=== PATIENT | female | born 1960 | race Caucasian/White ===

== ENCOUNTER → 2017-02-23 | Outpatient (CLI) | payer MEDICARE ==
--- NOTE | 2017-02-23 12:49 | RADIOLOGY REPORT (SQ) ---
EXAM DESCRIPTION: ANKLE LEFT COMPLETE COMPLETED DATE/TIME: 02/23/2017 12:28 pm REASON FOR STUDY: S99.911A INJURY OF RIGHT ANKLE, INITIAL ENCOUNTER DEGENERATIVE LUMBAR SPINA S99.91 1A UNSPECIFIED INJURY OF RIGHT ANKLE, INITIAL ENCOUNTE M48.061 SPINAL STENOSIS, LUMBAR REGION WITHO UT NEUROGENIC CL COMPARISON: None. NUMBER OF VIEWS: Three views. TECHNIQUE: AP, lateral, and oblique radiographic images acquired of the left ankle. LIMITATIONS: None. FINDINGS: MINERALIZATION: Normal. BONES: Small cortical avulsion fragments along the inferior tip of the medial malleolus, age indeterm inate. Remainder of the visualized bony structures are intact JOINTS: No effusions. No malalignment at the ankle mortise SOFT TISSUES: No soft tissue swelling. No foreign body. OTHER: No other significant finding. IMPRESSION: Tiny avulsion fragment off the tip of the medial malleolus, age indeterminate. No disruption of the ankle mortise. No ankle joint effusion TECHNICAL DOCUMENTATION: JOB ID: [id number] [employer]- All Rights Reserved
--- NOTE | 2017-02-23 12:55 | RADIOLOGY REPORT (SQ) ---
EXAM DESCRIPTION: L SPINE WHOLE COMPLETED DATE/TIME: 02/23/2017 12:28 pm REASON FOR STUDY: S99.911A INJURY OF RIGHT ANKLE, INITIAL ENCOUNTER DEGENERATIVE LUMBAR SPINA S99.91 1A UNSPECIFIED INJURY OF RIGHT ANKLE, INITIAL ENCOUNTE M48.061 SPINAL STENOSIS, LUMBAR REGION WITHO UT NEUROGENIC CL COMPARISON: 12/27/[address] abdomen pelvis 08/25/2015 NUMBER OF VIEWS: Five views including obliques. TECHNIQUE: AP, lateral, oblique, and sacral radiographic images acquired of the lumbar spine. LIMITATIONS: None. FINDINGS: MINERALIZATION: Osteopenic SEGMENTATION: There are 6 lumbar type vertebral bodies. The most superior vertebral body has short r ibs/ long transverse processes and will be labeled T12. ALIGNMENT: Normal. VERTEBRAE: Maintained height. No fracture or worrisome bone lesion. DISCS: Disc space loss of height at T11-12 and T12-L1. POSTERIOR ELEMENTS: Pedicles and facets are intact. No pars defect or posterior arch defects. Lower lumbar facet arthropathy at L3-4, L4-5, and L5-S1 HARDWARE: None in the spine. PARASPINAL SOFT TISSUES: Normal. PELVIS: Mild bilateral SI joint sclerosis OTHER: Large retrocardiac hiatal hernia containing the stomach fundus IMPRESSION: Mild degenerative facet arthropathy lower lumbar spine TECHNICAL DOCUMENTATION: JOB ID: [id number] [employer]- All Rights Reserved
== END ==
LOC: RAD 11:46
PROVIDERS: ATTEND Family Medicine
DX: S99.911A Unspecified injury of right ankle, initial encounter (principal); M48.061 Spinal stenosis, lumbar region without neurogenic claudication; X58.XXXA Exposure to other specified factors, initial encounter
CPT/HCPCS: 72110

== ENCOUNTER 2017-03-01 08:15 | Emergency (ER) | payer MEDICARE ==
[2017-03-01 08:20] VITALS: BP 134/86
--- NOTE | 2017-03-01 09:09 | ER Document Report ---
HPI - HPI Patient complains to provider of: left ankle injury Pain Level: 5 Context: Patient is a 56-year-old female presents emergency department complaining of left ankle pain. Patient states she fell approximately 2 weeks ago and was seen [address] Calle's office and sent for imaging which she had done on the . She was called and told that she did have a break in her ankle that should be set up with orthopedics. Patient presents today stating it is difficult and painful for her to ambulate around her home. Otherwise past medical history significant for hypertension, hyperlipidemia, anxiety, history of colitis, MS and cervical spinal stenosis. Denies any past surgical history on this extremity. Denies any tobacco, alcohol or drug use. Primary care is Dr. Calle - REPRODUCTIVE Reproductive: DENIES: : Past Medical History - Social History Smoking Status: Never Smoker Family History: Reviewed & Not Pertinent - Past Medical History Cardiac Medical History: Reports: Hx Hypercholesterolemia, Hx Hypertension Past Surgical History: Reports: Hx Hysterectomy Vertical Provider Document - CONSTITUTIONAL Agree With Documented VS: Yes Notes: PHYSICAL EXAM GENERAL: Alert, interacts well. EXTREMITIES: Moves all 4 extremities spontaneously. Tenderness over the medial aspect of the left ankle without any evidence of ecchymosis or edema. Full range of motion. Moves all digits distal to the ankle without any difficulty with normal capillary refill. Knee with full range of motion and nontender. No edema, radial and dorsalis pedis pulses 2/4 bilaterally. No cyanosis. NEUROLOGICAL: Alert and oriented x4. Normal speech. PSYCH: Normal affect, normal mood. SKIN: Warm, dry, normal turgor. No rashes or lesions noted. - INFECTION CONTROL TRAVEL OUTSIDE OF THE [place] IN LAST 30 DAYS: No - RESPIRATORY O2 Sat by Pulse Oximetry: 99 Course - Re-evaluation Re-evalutation: 03/01/17 09:08 Patient is a 56-year-old female who is hemodynamically stable, no acute distress. Presentation is consistent with imaging evidence of a medial malleolus fracture of the left ankle. Patient will be placed in a splint and educated on the use of crutches. No evidence of joint effusion at this time. Low clinical suspicion for septic joint. Regarding pain medication. Patient received 30 Percocet from her PCP Dr. Calle on February 19 which he was able to see when reviewing the [place] controlled substance reporting system. She will be discharged home with instructions to follow-up with Dr. Calle as scheduled as well as orthopedics. - Vital Signs Vital signs: Temp Pulse Resp BP Pulse Ox 98.4 F 86 20 134/86 H 99 03/01/17 08:19 03/01/17 08:19 03/01/17 08:19 03/01/17 08:19 03/01/17 08:19 - Diagnostic Test Radiology reviewed: Image reviewed - Image done on February 23 shows evidence of a medial malleolus fracture., Reports reviewed Procedures - Immobilization Left Ankle Pre-Proc Neuro Vasc Exam: Normal Immobilizer type: Short Leg Posterior Performed by: PCT Post-Proc Neuro Vasc Exam: Normal, Unchanged from pre-exam Alignment checked and good: Yes Discharge - Discharge Clinical Impression: Fractured medial malleolus Qualifiers: Encounter type: initial encounter Fracture type: closed Fracture alignment: nondisplaced Laterality: left Qualified Code(s): S82.55XA - Nondisplaced fracture of medial malleolus of left tibia, initial encounter for closed fracture Condition: Good Disposition: HOME, SELF-CARE Instructions: Use of Crutches ([facility]), Ice & Elevation ([facility]), Avulsion Fracture of the Ankle ([facility]) Referrals: EBONY CALLE DO [NO LOCAL MD] - Follow up as needed YARED KHALIL DO [ACTIVE STAFF] - Follow up in 3-5 days
== END 2017-03-01 10:30 | disposition home or self-care (01) ==
LOC: ER 08:15
PROC: 2W3RX1Z Immobilization of Left Lower Leg using Splint (ICD-10-PCS; principal; 2017-03-01)
DX: S82.55XA Nondisplaced fracture of medial malleolus of left tibia, initial encounter for closed fracture (principal); M25.572 Pain in left ankle and joints of left foot; I10 Essential (primary) hypertension; E78.5 Hyperlipidemia, unspecified; F41.9 Anxiety disorder, unspecified; W19.XXXA Unspecified fall, initial encounter
CPT/HCPCS: 99283

== ENCOUNTER 2017-10-04 22:46 | Emergency (ER) | payer MEDICARE ==
[2017-10-04] MEDS ORDERED: ASPIRIN 81 MG TABLET, CHEWABLE PO ONE (23:19)
[2017-10-04] MEDS ORDERED: ONDANSETRON 4 MG TAB.RAPDIS PO ONE (23:42)
--- NOTE | 2017-10-04 23:45 | ER Document Report ---
ED Medical Screen (RME) - General Chief Complaint: chest pain, shaky and dizzy Stated Complaint: CHEST PAIN Time Seen by Provider: 10/04/17 23:42 Mode of Arrival: Wheelchair Information source: Patient Notes: Patient is a 57-year-old female who presents with chief complaint of chest pain. Patient reports that the pain started or Wednesday, patient reports that she has been under a lot of stress lately, and that she ran out of her Xanax. Patient reports that she has chest pain in her left chest that radiates to her left jaw, arm and shoulder. Patient reports that the pain is worse with palpation. Patient reports past medical history of atrial septal defect and hypertension. Exam: Tenderness to palpation to left chest wall. Heart sounds S1-S2 present with no ectopy noted. I have greeted and performed a rapid initial assessment of this patient. A comprehensive ED assessment and evaluation of the patient, analysis of test results and completion of the medical decision making process will be conducted by additional ED providers. Dictation of this chart was performed using voice recognition software; therefore, there may be some unintended grammatical errors. TRAVEL OUTSIDE OF THE [place] IN LAST 30 DAYS: No - Related Data Allergies/Adverse Reactions: clarithromycin [From Biaxin] Allergy (Verified 03/01/17 08:18) ibuprofen [From Motrin] Allergy (Verified 03/01/17 08:18) ketorolac tromethamine [From Toradol] Allergy (Verified 03/01/17 08:18) nitroglycerin [Nitroglycerin] Allergy (Verified 03/01/17 08:18) NSAIDS (Non-Steroidal Anti-Inflamma [Nsaids] Allergy (Verified 03/01/17 08:18) Penicillins Allergy (Verified 03/01/17 08:18) Sulfa (Sulfonamide Antibiotics) Allergy (Verified 03/01/17 08:18) tramadol [Tramadol] Allergy (Verified 03/01/17 08:18) muscle relaxers Allergy (Uncoded 08/25/15 13:06) Past Medical History - Past Medical History Cardiac Medical History: Reports: Hx Hypercholesterolemia, Hx Hypertension Renal/ Medical History: Denies: Hx Peritoneal Dialysis Past Surgical History: Reports: Hx Hysterectomy Doctor's Discharge - Discharge Referrals: EBONY GONZALEZ DO [Primary Care Provider] - Follow up as needed
[2017-10-05 00:08] LABS: ABSOLUTE BASOPHILS # (AUTO) 0.1 10^3/uL (0.0-0.2); ABSOLUTE LYMPHOCYTES (AUTO) 2.6 10^3/uL (0.5-4.7); ABSOLUTE MONOCYTES (AUTO) 0.6 10^3/uL (0.1-1.4); ABSOLUTE NEUT (AUTO) 7.5 10^3/uL (1.7-8.2); BASOPHILS % (AUTO) 0.5 % (0-2); EOSINOPHILS % (AUTO) 0.1 % (0-6); HEMATOCRIT 35.2 % (36.0-47.0); HEMOGLOBIN 12.8 g/dL (12.0-15.5); LYMPHOCYTES % (AUTO) 23.9 % (13-45); MEAN CORPUSCULAR HEMOGLOBIN 31.1 pg (27.0-33.4); MEAN CORPUSCULAR HGB CONC 36.3 g/dL (32.0-36.0); MEAN CORPUSCULAR VOLUME 86 fl (80-97); MONOCYTES % (AUTO) 5.7 % (3-13); PLATELET COUNT 456 10^3/uL (150-450); RED BLOOD COUNT 4.11 10^6/uL (3.72-5.28); RED CELL DISTRIBUTION WIDTH 12.7 % (11.5-14.0); SEGMENTED NEUTROPHILS % (AUTO) 69.8 % (42-78); TOTAL CELLS COUNTED % (AUTO) 100 %; WHITE BLOOD COUNT 10.7 10^3/uL (4.0-10.5)
[2017-10-05 00:23] LABS: ALANINE AMINOTRANSFERASE 24 U/L (9-52); ALBUMIN 5.2 g/dL (3.5-5.0); ALKALINE PHOSPHATASE 52 U/L (38-126); ANION GAP 16 (5-19); ASPARTATE AMINO TRANSFERASE 15 U/L (14-36); BILIRUBIN,DIRECT 0.2 mg/dL (0.0-0.4); BILIRUBIN,TOTAL 0.8 mg/dL (0.2-1.3); BLOOD UREA NITROGEN 12 mg/dL (7-20); CARBON DIOXIDE 28 mmol/L (22-30); CHLORIDE 87 mmol/L (98-107); CREATINE KINASE 58 U/L (30-135); GLUCOSE 127 mg/dL (75-110); POTASSIUM 3.1 mmol/L (3.6-5.0); SODIUM 131.2 mmol/L (137-145); TOTAL PROTEIN 8.4 g/dL (6.3-8.2)
[2017-10-05 00:33] LABS: CREATINE KINASE MB 0.79 ng/mL (<4.55)
[2017-10-05 00:36] LABS: TROPONIN I < 0.012 ng/mL
[2017-10-05] MEDS ORDERED: ALPRAZOLAM 0.5 MG TABLET PO ONE (01:52)
--- NOTE | 2017-10-05 01:54 | ER Document Report ---
ED General - General Chief Complaint: chest pain, shaky and dizzy Stated Complaint: CHEST PAIN Time Seen by Provider: 10/04/17 23:42 Mode of Arrival: Wheelchair Notes: Patient is a 57-year-old female with a past medical history of chronic anxiety and takes daily Xanax, hypertension, who presents with 3 days of left-sided chest discomfort as well as left leg tingling and drinking. She reports that she has been under a lot of stress lately, and attributes her symptoms to being out of her Xanax. She states that she is worried she is going to withdrawal and have a myocardial infarction. She describes the pain in her left chest as being a constant, stabbing, aching pain worsened by movement or touching the area. She has not training to improve the pain. She denies any history of similar symptoms in the past. She has no history of cardiac disease. No history of DVT or pulmonary embolus. She denies any associated shortness of breath. She has not contacted her general doctor regarding today's concerns. TRAVEL OUTSIDE OF THE [place] IN LAST 30 DAYS: No - Related Data Allergies/Adverse Reactions: clarithromycin [From Biaxin] Allergy (Verified 03/01/17 08:18) ibuprofen [From Motrin] Allergy (Verified 03/01/17 08:18) ketorolac tromethamine [From Toradol] Allergy (Verified 03/01/17 08:18) nitroglycerin [Nitroglycerin] Allergy (Verified 03/01/17 08:18) NSAIDS (Non-Steroidal Anti-Inflamma [Nsaids] Allergy (Verified 03/01/17 08:18) Penicillins Allergy (Verified 03/01/17 08:18) Sulfa (Sulfonamide Antibiotics) Allergy (Verified 03/01/17 08:18) tramadol [Tramadol] Allergy (Verified 03/01/17 08:18) muscle relaxers Allergy (Uncoded 08/25/15 13:06) Past Medical History - General Information source: Patient - Social History Smoking Status: Never Smoker Chew tobacco use (# tins/day): No Frequency of alcohol use: None Drug Abuse: None Lives with: Spouse/Significant other Family History: Reviewed & Not Pertinent Patient has suicidal ideation: No Patient has homicidal ideation: No - Past Medical History Cardiac Medical History: Reports: Hx Hypercholesterolemia, Hx Hypertension Renal/ Medical History: Denies: Hx Peritoneal Dialysis Past Surgical History: Reports: Hx Hysterectomy Review of Systems - Review of Systems Notes: Constitutional: Negative for fever. HENT: Negative for sore throat. Eyes: Negative for visual changes. Cardiovascular: Positive for chest pain. Respiratory: Negative for shortness of breath. Gastrointestinal: Negative for abdominal pain, vomiting or diarrhea. Genitourinary: Negative for dysuria. Musculoskeletal: Negative for back pain. Skin: Negative for rash. Neurological: Negative for headaches, weakness or numbness. 10 point ROS negative except as marked above and in HPI. Physical Exam - Vital signs Vitals: Pulse Resp BP Pulse Ox 78 18 132/80 H 98 10/05/17 02:00 10/05/17 02:00 10/05/17 02:00 10/05/17 02:00 Interpretation: Normal Notes: PHYSICAL EXAMINATION: GENERAL: Well-appearing, well-nourished and in no acute distress. HEAD: Atraumatic, normocephalic. EYES: Pupils equal round and reactive to light, extraocular movements intact, sclera anicteric, conjunctiva are normal. ENT: nares patent, oropharynx clear without exudates. Moist mucous membranes. NECK: Normal range of motion, supple without lymphadenopathy LUNGS: Breath sounds clear to auscultation bilaterally and equal. No wheezes rales or rhonchi. HEART: Regular rate and rhythm without murmurs ABDOMEN: Soft, nontender, normoactive bowel sounds. No guarding, no rebound. No masses appreciated. EXTREMITIES: Normal range of motion, no pitting or edema. No cyanosis. NEUROLOGICAL: No focal neurological deficits. Moves all extremities spontaneously and on command. PSYCH: Anxious, somewhat tremulous SKIN: Warm, Dry, normal turgor, no rashes or lesions noted. Course - Re-evaluation Re-evalutation: 10/05/17 01:52 Presentation of chest pain in an otherwise well appearing patient. Low clinical suspicion for ACS given clinical history, exam, EKG without ST elevations or depressions, and negative initial troponin. HEART score less than or equal to 3. PE also seems unlikely given clinical history, absence of tachycardia or dyspnea. Wells score is 0. CXR without evidence of pneumothorax or pneumonia. No widened mediastinum. Aortic dissection also seems unlikely given history, symmetric pulses, CXR, and vitals. Patient has been having these symptoms for the past 3 days and I do not believe serial troponins are indicated. Patient appears to be having Xanax withdrawal she has not filled her prescription for her primary care doctor. She is tremulous, has multiple somatic complaints and she herself attributes most of her symptoms to stress and benzodiazepine withdrawal. She is given a single dose here in the emergency department and will fill the prescription for her primary care doctor in the morning. At this time will discharge with return precautions and follow-up recommendations. Verbal discharge instructions given a the bedside and opportunity for questions given. Medication warnings reviewed. Patient is in agreement with this plan and has verbalized understanding of return precautions and the need for primary care follow-up in the next 24-72 hours. - Vital Signs Vital signs: Temp Pulse Resp BP Pulse Ox 78 18 132/80 H 98 10/05/17 02:00 10/05/17 02:00 10/05/17 02:00 10/05/17 02:00 - Laboratory Result Diagrams: 10/04/17 23:57 10/04/17 23:57 Laboratory results interpreted by me: 10/04/17 10/04/17 23:57 23:57 WBC 10.7 H Hct 35.2 L MCHC 36.3 H Plt Count 456 H Sodium 131.2 L Potassium 3.1 L Chloride 87 L Glucose 127 H Total Protein 8.4 H Albumin 5.2 H - Diagnostic Test Radiology reviewed: Image reviewed, Reports reviewed Radiology results interpreted by me: 10/05/17 01:53 Chest x-ray: No acute infiltrate or pneumothorax Discharge - Discharge Clinical Impression: Chest discomfort, Chronic anxiety Benzodiazepine withdrawal Qualifiers: Complication of substance-induced condition: uncomplicated Qualified Code(s): F13.230 - Sedative, hypnotic or anxiolytic dependence with withdrawal, uncomplicated Condition: Good Disposition: HOME, SELF-CARE Additional Instructions: You were seen today for chest pain. The exact cause of your pain is unclear but does appear to be related to your recent stress and Xanax withdrawal. However, based on your cardiac enzyme testing, chest x-ray, and EKG it does not appear that it is from an immediately life-threatening cause at this time. Although your testing here is normal is critical that you follow-up with your primary care physician for continued evaluation of this chest pain and possible stress testing. I recommended you see your physician within the next 24-48 hours to be evaluated for consideration of a stress test. Please return to emergency department immediately if you have worsening of your chest pain, shortness of breath, vomiting, become unable to exert yourself due to pain or difficulty breathing, you pass out, or have any pain that radiates into your arms, jaw, or back. Please also return if you have any additional symptoms that are concerning to you. Referrals: EBONY GONZALEZ, [Primary Care Provider] - Follow up as needed
--- NOTE | 2017-10-05 01:59 | RADIOLOGY REPORT (SQ) ---
EXAM DESCRIPTION: Chest portable, October 05, 2017 137 AM CLINICAL HISTORY: CP COMPARISON: None FINDINGS: Cardiac silhouette is within normal limits. There is a hiatal hernia. There is no focal parenchymal or pleural disease. There is no acute osseous process visualized. IMPRESSION: No evidence of acute cardiopulmonary disease. Hiatal hernia.
[2017-10-05 02:26] VITALS: BP 132/80
--- NOTE | 2017-10-05 08:00 | EKG REPORT ---
SEVERITY:- NORMAL ECG - SINUS RHYTHM : Confirmed by: Naila Barahona MD 05-Oct-2017 07:59:38
== END 2017-10-05 02:15 | disposition home or self-care (01) ==
LOC: ER 22:46
DX: F13.230 Sedative, hypnotic or anxiolytic dependence with withdrawal, uncomplicated (principal); F41.9 Anxiety disorder, unspecified; T42.4X6A Underdosing of benzodiazepines, initial encounter; Z91.128 Patient's intentional underdosing of medication regimen for other reason; Z91.14 Patient's other noncompliance with medication regimen; R07.9 Chest pain, unspecified; R20.2 Paresthesia of skin; I10 Essential (primary) hypertension; Z88.1 Allergy status to other antibiotic agents; Z88.6 Allergy status to analgesic agent; Z88.8 Allergy status to other drugs, medicaments and biological substances; Z88.0 Allergy status to penicillin; Z88.2 Allergy status to sulfonamides; Z88.5 Allergy status to narcotic agent
CPT/HCPCS: 93005; 99285; 36415; 82553; 82550; 85025; 80053; 84484; 71045; 93010; A9270 ×3; S0119

== ENCOUNTER → 2017-10-28 | Outpatient (CLI) | payer MEDICARE ==
--- NOTE | 2017-10-28 16:16 | WOMENS IMAGING REPORT ---
EXAM DESCRIPTION: BILAT SCREENING MAMMO W/CAD COMPLETED DATE/TIME: 10/28/2017 8:48 am REASON FOR STUDY: SCREENING MAMMO Z12.31 ENCNTR SCREEN MAMMOGRAM FOR MALIGNANT NEOPLASM OF DAMION COMPARISON: 2015 TECHNIQUE: Standard craniocaudal and mediolateral oblique views of each breast recorded using digita l acquisition. LIMITATIONS: None. FINDINGS: No masses, calcifications or architectural distortion. No areas of suspicion. Read with the assistance of CAD. .[facility] - R2 Cenova Version 1.3 .[facility] Imaging - R2 Cenova Version 1.3 .[facility] - R2 Cenova Version 2.4 .[facility] - R2 Cenova Version 2.4 .[facility] - R2 Combination Saw Operator Version 9.2 IMPRESSION: NORMAL MAMMOGRAM. BIRADS 1. BREAST DENSITY: b. There are scattered areas of fibroglandular density. BIRAD: 1 NEGATIVE RECOMMENDATION: ROUTINE SCREENING COMMENT: The patient has been notified of the results by letter per SA requirements. Additional no tification policies are in place for contacting patient with suspicious or incomplete findings. Quality ID #[id number]: The [employer] recommends an annual screening mammogram for women aged 40 years or over. This facility utilizes a reminder system to ensure that all patients receive reminder letters, and/or direct phone calls for appointments. This includes reminders for routine scr eening mammograms, diagnostic mammograms, or other Breast Imaging Interventions when appropriate. Th is patient will be placed in the appropriate reminder system. The [employer] (A[employer]) has developed recommendations for screening MRI of the breast s in certain patient populations, to be used in conjunction with mammography. Breast MRI surveillanc e may be appropriate for women with more than 20% lifetime risk of developing breast cancer as deter mined by genetic testing, significant family history of the disease, or history of mantle radiation f or Hodgkins Disease. ACR Practice Guidelines 2008. TECHNICAL DOCUMENTATION: FINDING NUMBER: (1) ASSESSMENT: (1) JOB ID: [id number] [employer]- All Rights Reserved Reading location - IP/workstation name: [email or web address]
== END ==
LOC: WI 08:57
PROVIDERS: ATTEND Family Medicine
DX: Z12.31 Encounter for screening mammogram for malignant neoplasm of breast (principal)
CPT/HCPCS: 77067

== ENCOUNTER 2019-06-21 15:27 | Inpatient (IN) | payer MEDICARE ==
--- NOTE | 2019-06-21 16:04 | ER Document Report ---
ED General - General Chief Complaint: Shortness Of Breath Stated Complaint: SHORTNESS OF BREATH Time Seen by Provider: 06/21/19 15:59 Primary Care Provider: EBONY GONZALEZ DO [Primary Care Provider] - Follow up as needed Mode of Arrival: Medic Information source: Patient Notes: 59-year-old woman presents to the emergency department with a history of 2 episodes of seizure during the past 24 hours. Patient states that her noted she had seizure activity control shaking loss of control of her bowel and bladder function. She states that she has never had seizures before. She has a history of anxiety, pituitary "benign" tumor, hypertension and dyslipidemia. She complains of headache and generalized weakness with back pain. She denies fever, cough, shortness of breath for nausea and vomiting. TRAVEL OUTSIDE OF THE [place] IN LAST 30 DAYS: No - Related Data Allergies/Adverse Reactions: clarithromycin [From Biaxin] Allergy (Verified 03/01/17 08:18) ibuprofen [From Motrin] Allergy (Verified 03/01/17 08:18) ketorolac tromethamine [From Toradol] Allergy (Verified 03/01/17 08:18) nitroglycerin [Nitroglycerin] Allergy (Verified 03/01/17 08:18) NSAIDS (Non-Steroidal Anti-Inflamma [Nsaids] Allergy (Verified 03/01/17 08:18) Penicillins Allergy (Verified 03/01/17 08:18) Sulfa (Sulfonamide Antibiotics) Allergy (Verified 03/01/17 08:18) tramadol [Tramadol] Allergy (Verified 03/01/17 08:18) muscle relaxers Allergy (Uncoded 08/25/15 13:06) Past Medical History - General Information source: Patient - Social History Smoking Status: Unknown if Ever Smoked Family History: Reviewed & Not Pertinent - Past Medical History Cardiac Medical History: Reports: Hx Hypercholesterolemia, Hx Hypertension Renal/ Medical History: Denies: Hx Peritoneal Dialysis Past Surgical History: Reports: Hx Hysterectomy Review of Systems - Review of Systems Notes: Constitutional: Negative for fever. HENT: Negative for sore throat. Eyes: Negative for visual changes. Cardiovascular: Negative for chest pain. Respiratory: Negative for shortness of breath. Gastrointestinal: Negative for abdominal pain, vomiting or diarrhea. Genitourinary: Negative for dysuria. Musculoskeletal: + Back pain. Skin: Negative for rash. Neurological: + Seizure, + headache, + weakness no numbness. 10 point ROS negative except as marked above and in HPI. Physical Exam - Vital signs Vitals: Pulse Ox 98 06/21/19 15:30 - Notes Notes: PHYSICAL EXAMINATION: Physical Exam: General: Well-nourished well-developed 59-year-old female in no acute distress HEENT: NC/AT, pupils equal round and reactive to light, MM moist,nares clear, oropharynx clear, airway patent Neck: supple, no adenopathy, no masses. Good range of motion Lungs: clear, no wheezing, no rales no rhonchi CVS: Regular rate and rhythm no murmur gallop or rub Abdomen: Soft, active, nontender, no masses, no hepatosplenomegaly Ext: No edema, clubbing or cyanosis. Neuro: Alert and responsive, moving all 4 extremities on command, cranial nerves intact, no focal findings Skin: Intact no open lesions, no rash PSYCH: Normal mood, normal affect. Course - Re-evaluation Re-evalutation: 06/21/19 18:05 Patient is found to be hyponatremic, history of 2 seizures over the past 24 hours. Spoke with the lead mason tender, Dr. Mendoza who has agreed to see the patient in the emergency department for further evaluation and treatment. - Vital Signs Vital signs: Temp Pulse Resp BP Pulse Ox 98.1 F 87 16 146/90 H 98 06/21/19 15:42 06/21/19 15:42 06/21/19 15:42 06/21/19 15:42 06/21/19 15:42 - Laboratory Result Diagrams: 06/21/19 15:35 06/21/19 15:35 Laboratory results interpreted by me: 06/21/19 06/21/19 06/21/19 15:35 15:35 15:35 WBC 19.2 H Hgb 11.9 L Hct 32.3 L MCHC 36.9 H Plt Count 491 H Lymph % (Auto) 5.3 L Absolute Neuts (auto) 17.1 H Seg Neutrophils % 89.3 H PT 15.7 H Sodium Potassium Chloride BUN Glucose Lactic Acid 4.7 H AST 06/21/19 15:35 WBC Hgb Hct MCHC Plt Count Lymph % (Auto) Absolute Neuts (auto) Seg Neutrophils % PT Sodium 118.4 L* Potassium 2.9 L* Chloride 80 L BUN 2 L Glucose 140 H Lactic Acid AST 39 H Critical Care Note - Critical Care Note Total time excluding time spent on procedures (mins): 45 - Critical care time spent obtaining history from patient or surrogate, discussions with consultants, development of treatment plan with patient or surrogate, evaluation of patient's response to treatment, examination of patient, ordering and performing treatments and interventions, ordering and review of laboratory studies, re- evaluation of patient's condition, ordering and review of radiographic studies and review of old charts Discharge - Discharge Clinical Impression: Hyponatremia, Seizure, Hypokalemia Condition: Good Disposition: ADMITTED INPATIENT Admitting Provider: Chantelle (Financial Operations Clerk) Unit Admitted: ICU Referrals: EBONY GONZALEZ DO [Primary Care Provider] - Follow up as needed
[2019-06-21 16:15] LABS: INTERNATIONAL RATION (INR) 1.24; PROTHROMBIN TIME 15.7 SEC (11.4-15.4)
[2019-06-21 16:16] LABS: ABSOLUTE NEUT (AUTO) 17.1 10^3/uL (1.7-8.2); BASOPHILS % (AUTO) 0.1 % (0-2); HEMATOCRIT 32.3 % (36.0-47.0); HEMOGLOBIN 11.9 g/dL (12.0-15.5); LYMPHOCYTES % (AUTO) 5.3 % (13-45); MEAN CORPUSCULAR HEMOGLOBIN 30.9 pg (27.0-33.4); MEAN CORPUSCULAR HGB CONC 36.9 g/dL (32.0-36.0); MEAN CORPUSCULAR VOLUME 84 fl (80-97); MONOCYTES % (AUTO) 5.3 % (3-13); PLATELET COUNT 491 10^3/uL (150-450); RED BLOOD COUNT 3.86 10^6/uL (3.72-5.28); RED CELL DISTRIBUTION WIDTH 12.7 % (11.5-14.0); SEGMENTED NEUTROPHILS % (AUTO) 89.3 % (42-78); TOTAL CELLS COUNTED % (AUTO) 100 %; WHITE BLOOD COUNT 19.2 10^3/uL (4.0-10.5)
--- NOTE | 2019-06-21 16:21 | RADIOLOGY REPORT (SQ) ---
EXAM DESCRIPTION: CHEST SINGLE VIEW IMAGES COMPLETED DATE/TIME: 06/21/2019 4:13 pm REASON FOR STUDY: bed 6 sepsis protocol COMPARISON: 10/05/2017 EXAM PARAMETERS: NUMBER OF VIEWS: One view. TECHNIQUE: Single frontal radiographic view of the chest acquired. RADIATION DOSE: NA LIMITATIONS: None. FINDINGS: LUNGS AND PLEURA: No opacities, masses or pneumothorax. No pleural effusion. MEDIASTINUM AND HILAR STRUCTURES: No masses. Contour normal. HEART AND VASCULAR STRUCTURES: Heart normal in size. Normal vasculature. BONES: No acute findings. HARDWARE: None in the chest. OTHER: There is a large hiatal hernia. IMPRESSION: NO ACUTE RADIOGRAPHIC FINDING IN THE CHEST. TECHNICAL DOCUMENTATION: JOB ID: [id number] 2010 [employer]- All Rights Reserved Reading location - IP/workstation name: [email or web address]
[2019-06-21 16:36] LABS: ALBUMIN 4.4 g/dL (3.5-5.0); ALKALINE PHOSPHATASE 67 U/L (38-126); ANION GAP 15 (5-19); ASPARTATE AMINO TRANSFERASE 39 U/L (14-36); BILIRUBIN,TOTAL 0.5 mg/dL (0.2-1.3); BLOOD UREA NITROGEN 2 mg/dL (7-20); CALCIUM 9.1 mg/dL (8.4-10.2); CARBON DIOXIDE 23 mmol/L (22-30); CHLORIDE 80 mmol/L (98-107); GLUCOSE 140 mg/dL (75-110); TOTAL PROTEIN 7.4 g/dL (6.3-8.2)
[2019-06-21 16:51] LABS: POTASSIUM 2.9 mmol/L (3.6-5.0)
[2019-06-21] MEDS ORDERED: LORAZEPAM INJ 2 MG/1 ML VIAL IV ONE (16:53)
[2019-06-21] MEDS ORDERED: HYDROMORPHONE HCL INJ/PF 2 MG/ML AMPULE IV ONE (16:54)
--- NOTE | 2019-06-21 17:15 | RADIOLOGY REPORT (SQ) ---
EXAM DESCRIPTION: CT HEAD WITHOUT IMAGES COMPLETED DATE/TIME: 06/21/2019 4:47 pm REASON FOR STUDY: Seizure COMPARISON: None. TECHNIQUE: Axial images acquired through the brain without intravenous contrast. Images reviewed wi th bone, brain and subdural windows. Additional sagittal and coronal reconstructions were generated. Images stored on PACS. All CT scanners at this facility use dose modulation, iterative reconstruction, and/or weight based d osing when appropriate to reduce radiation dose to as low as reasonably achievable (ALARA). [facility]: Dose Right [facility]: CareDose [facility]: Dose Right [facility]: Teradose 4D [facility]: [employer] RADIATION DOSE: CT Rad equipment meets quality standard of care and radiation dose reduction techniq ues were employed. CTDIvol: 53.2 mGy. DLP: 991 mGy-cm. LIMITATIONS: None. FINDINGS: VENTRICLES: Normal size and contour. The cisterns are patent. CEREBRUM: No masses. No hemorrhage. No midline shift. No evidence for acute infarction. Normal gra y/white matter differentiation. No areas of low density in the white matter. CEREBELLUM: No masses. No hemorrhage. No alteration of density. No evidence for acute infarction. EXTRAAXIAL SPACES: No fluid collections. No masses. ORBITS AND GLOBE: No intra- or extraconal masses. Normal contour of globe without masses. CALVARIUM: No fracture. PARANASAL SINUSES: No fluid or mucosal thickening. SOFT TISSUES: No mass or hematoma. OTHER: Old remote trauma versus normal anatomic variant involving the anterior arch of C1. IMPRESSION: 1. No acute intracranial abnormality. 2. Additional findings as above. EVIDENCE OF ACUTE STROKE: NO COMMENT: Quality ID # [id number]: Final reports with documentation of one or more dose reduction techniques (e.g., Automated exposure control, adjustment of the mA and/or kV according to patient size, use of iterative reconstruction technique) TECHNICAL DOCUMENTATION: JOB ID: [id number] 2010 [employer]- All Rights Reserved Reading location - IP/workstation name: [email or web address]
--- NOTE | 2019-06-21 17:21 | RADIOLOGY REPORT (SQ) ---
EXAM DESCRIPTION: L SPINE WHOLE IMAGES COMPLETED DATE/TIME: 06/21/2019 4:53 pm REASON FOR STUDY: back pain COMPARISON: None. NUMBER OF VIEWS: Five views including obliques. TECHNIQUE: AP, lateral, oblique, and sacral radiographic images acquired of the lumbar spine. LIMITATIONS: None. FINDINGS: MINERALIZATION: Normal. SEGMENTATION: Normal. No transitional anatomy. ALIGNMENT: Accentuation of the normal lordotic curvature. VERTEBRAE: Mild gas overlies the vertebral bodies obscuring detail somewhat. Mild compression defor mity of the superior endplate of the L1 vertebra new finding since the prior examination. No evidenc e of retropulsion to the spinal canal. Age is indeterminate. DISCS: Stable disc space narrowing suggested at L1-L2 with mildly prominent anterior osteophytes. M ild degenerative changes involving the visualized lower thoracic spine. Preserved height. No signif icant osteophytes or end plate irregularity. POSTERIOR ELEMENTS: Mild facet arthrosis lower lumbar spine. Pedicles are intact. No pars defect o r posterior arch defects. HARDWARE: None in the spine. PARASPINAL SOFT TISSUES: Normal. PELVIS: Intact as visualized. No fractures or worrisome bone lesions. SI joints intact. OTHER: Bilateral tubal ligation clips. Stable nonspecific lucent density with a thin sclerotic vicky anterior to the lower lumbar vertebra. IMPRESSION: 1. Mild compression deformity of the superior endplate of the L1 vertebra since the pre vious study dated 02/23/2017. No evidence of retropulsion. Age is indeterminate. Correlation with history suggested and additional imaging may be helpful if clinically indicated. 2. Degenerative disc disease L1-L2, unchanged finding. 3. Examination is somewhat limited due to overlying bowel gas obscuring osseous detail. TECHNICAL DOCUMENTATION: JOB ID: [id number] 2010 [employer]- All Rights Reserved Reading location - IP/workstation name: [email or web address] EDUCATION [email or web address]
[2019-06-21] MEDS ORDERED: NORMAL SALINE 1000 ML 1,000 ML IV ONE (17:48)
[2019-06-21] MEDS ORDERED: POTASSI CL 20 MEQ/50 ML RIDER 20 MEQ/50 ML RTUPB IV ONE (17:49)
[2019-06-21] MEDS ORDERED: SODIUM CHLORIDE 3% 500 ML IV ONE (19:00)
[2019-06-21 19:28] LABS: INTERNATIONAL RATION (INR) 1.29; PARTIAL THROMBOPLASTIN TIME 31.2 SEC (23.5-35.8); PROTHROMBIN TIME 16.2 SEC (11.4-15.4)
[2019-06-21] MEDS: ENOXAPARIN SODIUM INJ 40 MG/0.4 ML DISP.SYRIN SUBCUT SCH (19:34)
[2019-06-21 19:37] LABS: VENOUS BLOOD BASE EXCESS 1.9 mmol/L; VENOUS BLOOD PCO2 34.8 mmHg (35-63); VENOUS BLOOD PH 7.48 (7.30-7.42)
[2019-06-21 19:50] LABS: ANION GAP 9 (5-19); BLOOD UREA NITROGEN 2 mg/dL (7-20); CALCIUM 8.2 mg/dL (8.4-10.2); CARBON DIOXIDE 25 mmol/L (22-30); CHLORIDE 85 mmol/L (98-107); GLUCOSE 107 mg/dL (75-110); PHOSPHORUS 2.5 mg/dL (2.5-4.5)
[2019-06-21 20:33] LABS: APPEARANCE,URINE CLEAR; BILIRUBIN,URINE NEGATIVE (NEGATIVE); COLOR,URINE STRAW; GLUCOSE, URINE NEGATIVE (NEGATIVE); KETONES,URINE NEGATIVE (NEGATIVE); PROTEIN,URINE NEGATIVE (NEGATIVE); URINE SPECIFIC GRAVITY 1.006; UROBILINOGEN,URINE NEGATIVE mg/dL (<2.0)
[2019-06-21 20:47] LABS: URINE AMPHETAMINES SCREEN NEGATIVE; URINE BARBITURATES SCREEN NEGATIVE; URINE COCAINE SCREEN NEGATIVE; URINE MARIJUANA (THC) SCREEN NEGATIVE; URINE METHADONE SCREEN NEGATIVE; URINE PHENCYCLIDINE SCREEN NEGATIVE
[2019-06-21 21:01] LABS: CREATINE KINASE 7207 U/L (30-135)
[2019-06-21 21:11] LABS: POTASSIUM 2.7 mmol/L (3.6-5.0)
[2019-06-21 21:12] LABS: URINE BENZODIAZEPINES SCREEN UNCONFIRMED POSITIVE
[2019-06-21 21:46] LABS: URINE CREATININE 46.9 mg/dL (15-278)
--- NOTE | 2019-06-21 21:50 | EKG REPORT ---
SEVERITY:- NORMAL ECG - SINUS RHYTHM : Confirmed by: Naila Barahona MD 21-Jun-2019 21:48:56
[2019-06-21] MEDS: POTASSIUM CHLORIDE 20 MEQ/50 ML RTU IV SCH ×2 (22:12→23:23)
[2019-06-21] MEDS: CHLORPROMAZINE HCL 25 MG TABLET PO SCH (23:23)
[2019-06-21 23:36] LABS: ANION GAP 11 (5-19); BLOOD UREA NITROGEN 2 mg/dL (7-20); CALCIUM 8.2 mg/dL (8.4-10.2); CARBON DIOXIDE 23 mmol/L (22-30); CHLORIDE 89 mmol/L (98-107); GLUCOSE 111 mg/dL (75-110)
[2019-06-21 23:43] LABS: POTASSIUM 2.9 mmol/L (3.6-5.0)
[2019-06-21] MEDS: ALPRAZOLAM 0.5 MG TABLET PO PRN (23:44)
--- NOTE | 2019-06-22 01:28 | CRITICAL CARE ADMISSION REPORT ---
HPI Date:: 06/21/19 Time:: 19:45 Reason for ICU Reason:: Seizure, Hyponatremia HPI: 59-year-old female history of anxiety, pituitary tumor, hypertension and dys lipidemia. She is on multiple medications for anxiety and chronic pain including Xanax and Thorazine. She presented to the emergency room following 2 episodes of seizures over the past 24 hours. Patient was found to be hyponatremic (Na: 118), and hypokalemic. She was started on hypertonic saline while in the emergency department and is slowly improving. On initial presentation, she was thought to be post-ictal ever her mental status has been steadily improving and upon arrival to the ICU she was awake and alert. She is being admitted to the intensive care unit for monitoring and correction of her hyponatremia and electrolyte imbalance. - Diagnosis/Plan (1) Hypokalemia Is this a current diagnosis for this admission?: Yes Plan: Repeat chemistry every 6 hours and replete potassium as needed. Continue cardiac monitoring. (2) Hyponatremia Is this a current diagnosis for this admission?: Yes Plan: Continue hyper tonic saline at 30 mL/h Follow-up urine labs including urine sodium, urine osmolality, Follow-up TSH, cortisol and serum osmolality. (3) Seizure Is this a current diagnosis for this admission?: Yes Plan: No further seizure activity witnessed since admission. Continue home dose of Xanax. Ativan PRN for breakthrough seizures. Past Medical History Cardiac Medical History: Reports: Hyperlipidema, Hypertension Pulmonary Medical History: Reports: None Malignancy Medical History: Reports: None Psychiatric Medical History: Reports: General Anxiety Disorder Psychiatric History Note: Patient has a long history of anxiety and complains of chronic pain. She takes Xanax and Thorazine daily. Past Surgical History Past Surgical History: Reports: Hysterectomy Social/Family History - Social History Lives with: Spouse/Significant other Smoking Status: Unknown if Ever Smoked - Medication/Allergies Home Medications: Alprazolam [Xanax] 1 mg PO QID 06/21/19 Apixaban [Eliquis 5 mg Tablet] 5 mg PO BID 06/21/19 Chlorpromazine HCl [Thorazine 25 Mg Tablet] 12.5 mg PO DAILY 06/21/19 Lisinopril 20 mg PO DAILY 06/21/19 Oxycodone HCl/Acetaminophen [Percocet 5-325 mg Tablet] 1 tab PO Q4HP PRN 06/21/19 Allergies/Adverse Reactions: clarithromycin [From Biaxin] Allergy (Verified 06/21/19 21:34) Facial swelling ibuprofen [From Motrin] Allergy (Verified 06/21/19 21:34) Nausea ketorolac tromethamine [From Toradol] Allergy (Verified 03/01/17 08:18) nitroglycerin [Nitroglycerin] Allergy (Verified 06/21/19 21:34) Hypotension NSAIDS (Non-Steroidal Anti-Inflamma [Nsaids] Allergy (Verified 06/21/19 21:34) Nausea Penicillins Allergy (Verified 06/21/19 21:34) Anaphylaxis Sulfa (Sulfonamide Antibiotics) Allergy (Verified 06/21/19 21:34) Anaphylaxis tramadol [Tramadol] Allergy (Verified 06/21/19 21:34) Difficulty breathing muscle relaxers Allergy (Uncoded 08/25/15 13:06) Review of Systems Constitutional: PRESENT: other - Generalized discomfort Psychiatric: PRESENT: anxiety - Patient asking for pain medicine and Xanax. Physical Exam Vital Signs: Temp Pulse Resp BP Pulse Ox 98.1 F 87 12 161/91 H 98 06/21/19 15:42 06/21/19 15:42 06/21/19 19:01 06/21/19 19:00 06/21/19 19:01 Intake & Output 06/20/19 06/21/19 06/22/19 06:59 06:59 06:59 Intake Total 816 Balance 816 Weight 63.503 kg Weight/Height Weight 63.503 kg Height 5 ft General appearance: PRESENT: no acute distress Head exam: PRESENT: atraumatic, normocephalic Eye exam: PRESENT: EOMI, PERRLA Neck exam: ABSENT: JVD Respiratory exam: PRESENT: clear to auscultation dimitri, unlabored. ABSENT: accessory muscle use Cardiovascular exam: PRESENT: RRR Pulses: PRESENT: +2 pedal pulses bilateral Vascular exam: PRESENT: normal capillary refill GI/Abdominal exam: PRESENT: soft. ABSENT: tenderness Extremities exam: ABSENT: tenderness Musculoskeletal exam: PRESENT: normal inspection Neurological exam: PRESENT: alert, altered, awake, oriented to person, oriented to place, oriented to situation, CN II-XII grossly intact Psychiatric exam: PRESENT: anxious Laboratory/Radiographs Laboratory Results: 06/21/19 15:35 06/21/19 06/21/1906/20/20 15:35 15:35 15:35 WBC 19.2 H RBC 3.86 Hgb 11.9 L Hct 32.3 L MCV 84 MCH 30.9 MCHC 36.9 H RDW 12.7 Plt Count 491 H Seg Neutrophils % 89.3 H Sodium 118.4 L* Potassium 2.9 L* Chloride 80 L Carbon Dioxide 23 Anion Gap 15 BUN 2 L Creatinine 0.57 Est GFR ( Amer) > 60 Glucose 140 H Lactic Acid 4.7 H Calcium 9.1 Magnesium Total Bilirubin 0.5 AST 39 H Alkaline Phosphatase 67 Total Protein 7.4 Albumin 4.4 06/21/19 15:35 WBC RBC Hgb Hct MCV MCH MCHC RDW Plt Count Seg Neutrophils % Sodium Potassium Chloride Carbon Dioxide Anion Gap BUN Creatinine Est GFR ( Amer) Glucose Lactic Acid Calcium Magnesium 1.9 Total Bilirubin AST Alkaline Phosphatase Total Protein Albumin 06/21/19 15:35 Troponin I 0.013 Impressions: Chest X-Ray 06/21/19 15:30 IMPRESSION: NO ACUTE RADIOGRAPHIC FINDING IN THE CHEST. Head CT 06/21/19 16:23 IMPRESSION: 1. No acute intracranial abnormality. 2. Additional findings as above. EVIDENCE OF ACUTE STROKE: NO Lumbar Spine X-Ray 06/21/19 16:25 IMPRESSION: 1. Mild compression deformity of the superior endplate of the L1 vertebra since the previous study dated 02/23/2017. No evidence of retropulsion. Age is indeterminate. Correlation with history suggested and additional imaging may be helpful if clinically indicated. 2. Degenerative disc disease L1-L2, unchanged finding. 3. Examination is somewhat limited due to overlying bowel gas obscuring osseous detail. All labs, radiographs, diagnostic studies and EKGs were personally reviewed: Yes In addition, reports of radiographic and diagnostic studies were read: Yes Critical Time Critical Time (minutes): 70 -: The care of a critically ill patient is dynamic. This note represents a static moment in the admission process. Orders and treatments may be given simultaneously and urgently, and time is not textiles sales representative of the treatment process. This patient requires Critical Care secondary to life threatening organ or limb dysfunction. Without Critical Care services, the patient is at risk for increased mortality and morbidity.
[2019-06-22] MEDS: OXYCODONE-ACETAMINOPHEN 5-325 MG TABLET PO PRN ×4 (03:14→19:21)
[2019-06-22 03:29] LABS: ANION GAP 8 (5-19); CALCIUM 8.8 mg/dL (8.4-10.2); CARBON DIOXIDE 26 mmol/L (22-30); CHLORIDE 95 mmol/L (98-107); GLUCOSE 105 mg/dL (75-110); POTASSIUM 3.4 mmol/L (3.6-5.0)
[2019-06-22 03:30] LABS: BLOOD UREA NITROGEN < 2 mg/dL (7-20)
[2019-06-22] MEDS: POTASSI CL 20 MEQ/50 ML RIDER 20 MEQ/50 ML RTUPB IV SCH ×4 (03:40→21:28)
[2019-06-22 06:59] LABS: ALBUMIN 4.1 g/dL (3.5-5.0); ALKALINE PHOSPHATASE 61 U/L (38-126); ANION GAP 8 (5-19); ASPARTATE AMINO TRANSFERASE 77 U/L (14-36); BILIRUBIN,DIRECT 0.2 mg/dL (0.0-0.4); BILIRUBIN,TOTAL 0.7 mg/dL (0.2-1.3); BLOOD UREA NITROGEN 3 mg/dL (7-20); CALCIUM 8.6 mg/dL (8.4-10.2); CARBON DIOXIDE 26 mmol/L (22-30); CHLORIDE 96 mmol/L (98-107); GLUCOSE 94 mg/dL (75-110); PHOSPHORUS 2.3 mg/dL (2.5-4.5); POTASSIUM 3.7 mmol/L (3.6-5.0)
[2019-06-22 07:01] LABS: ABSOLUTE LYMPHOCYTES (AUTO) 1.4 10^3/uL (0.5-4.7); ABSOLUTE MONOCYTES (AUTO) 0.8 10^3/uL (0.1-1.4); ABSOLUTE NEUT (AUTO) 8.2 10^3/uL (1.7-8.2); BASOPHILS % (AUTO) 0.3 % (0-2); HEMATOCRIT 32.2 % (36.0-47.0); HEMOGLOBIN 11.7 g/dL (12.0-15.5); MEAN CORPUSCULAR HEMOGLOBIN 30.9 pg (27.0-33.4); MEAN CORPUSCULAR HGB CONC 36.5 g/dL (32.0-36.0); MEAN CORPUSCULAR VOLUME 85 fl (80-97); PLATELET COUNT 401 10^3/uL (150-450); RED CELL DISTRIBUTION WIDTH 12.7 % (11.5-14.0); SEGMENTED NEUTROPHILS % (AUTO) 78.7 % (42-78); TOTAL CELLS COUNTED % (AUTO) 100 %; WHITE BLOOD COUNT 10.5 10^3/uL (4.0-10.5)
[2019-06-22] MEDS ORDERED: DEXTROSE 5%-WATER 1000 ML 1,000 ML IV PRN ×2 (07:31→12:14)
[2019-06-22] MEDS: ALPRAZOLAM 0.5 MG TABLET PO PRN (09:10)
[2019-06-22] MEDS: CHLORPROMAZINE HCL 25 MG TABLET PO SCH (09:10)
[2019-06-22] MEDS: ENOXAPARIN SODIUM INJ 40 MG/0.4 ML DISP.SYRIN SUBCUT SCH (09:10)
[2019-06-22] MEDS ORDERED: OXYCODONE-ACETAMINOPHEN 5-325 MG TABLET PO PRN (10:06)
[2019-06-22] MEDS ORDERED: (PENDING PHARMACY ID) (Lisinopril [Lisinopril] 20 MG) PO SCH (10:15)
--- NOTE | 2019-06-22 10:21 | PDOC CRITICAL CARE PROG REPORT ---
General Date:: 06/22/19 ICU Day:: 2 Hospital Day:: 2 Resuscitation Status: Full Code Medical Power of Animal Skinner: Events in the past 12 to 24 Hours:: Patient has had no seizures since admission to the ICU. She was started on 3% and had an increase in sodium in the 3% was stopped. Now on D5W to suppress for any possible overcorrection. Is been no evidence of neurological decline. 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 She has a pituitary tumor and a cardiomyopathy however she is not on any significant medications other than lisinopril. She does disclose that she has been taking chlorthalidone. She discloses that she is being seen for pituitary tumor but is elusive in all the specifics. Is been seen at [facility] and old records have been ordered. No history of seizures. She says she feels weak and is unable to move well. There is no tongue injury. CK was elevated mentation. Phoning was negative Reason for ICU Addmission:: Seizure, Hyponatremia - Medications: Medications reviewed and adjusted accordingly: Yes Physical Exam Vital Signs: Temp Pulse Resp BP Pulse Ox 98.9 F 88 0 L 137/78 H 97 06/22/19 08:00 06/22/19 08:05 06/22/19 09:00 06/22/19 08:58 06/22/19 09:00 Intake & Output 06/21/19 06/22/19 06/23/19 06:59 06:59 06:59 Intake Total 946 234 Output Total 2800 350 Balance -1854 -116 Weight 69.1 kg Weight/Height Weight 69.1 kg Height 5 in General appearance: PRESENT: no acute distress, cooperative, disheveled, obese Exam: Nonintubated nontoxic 59-year-old female who appears in no acute distress on [place] ill-appearing Head exam: PRESENT: atraumatic, normocephalic Eye exam: PRESENT: conjunctiva pink, PERRLA. ABSENT: conjunctival injection, nystagmus, scleral icterus Ear exam: PRESENT: normal external ear exam Mouth exam: PRESENT: dry mucosa, tongue midline, other - No tongue laceration or injury Teeth exam: PRESENT: poor dentation Neck exam: ABSENT: carotid bruit, JVD, lymphadenopathy, meningismus, tenderness, thyromegaly, tracheal deviation Respiratory exam: PRESENT: clear to auscultation dimitri, unlabored. ABSENT: accessory muscle use, rales, rhonchi, tachypnea, wheezes Cardiovascular exam: PRESENT: RRR. ABSENT: diastolic murmur, rubs, systolic murmur Pulses: PRESENT: +1 pedal pulses bilateral GI/Abdominal exam: PRESENT: normal bowel sounds, soft. ABSENT: ascites, distended, guarding, mass, organolmegaly, rebound, tenderness Rectal exam: PRESENT: deferred Gentrourinary exam: PRESENT: indwelling catheter Extremities exam: ABSENT: pedal edema Musculoskeletal exam: PRESENT: normal inspection. ABSENT: deformity, dislocation, tenderness Neurological exam: PRESENT: alert, awake, oriented to person, oriented to place, oriented to time, oriented to situation, CN II-XII grossly intact, other - Patient appears to have homonymous hemianopsia however it is not consistent on exam. On passive range of motion she is weak however when distracted has s ignificant strength. Strength in lower legs 2/5 but when distracted appears to be stronger. DTRs are hyperactive. ABSENT: reflexes normal, motor sensory deficit, aphasic Psychiatric exam: PRESENT: depressed, unusual affect. ABSENT: anxious, manic Focused psych exam: ABSENT: pressured speech, psychomotor agitation, restlessness Skin exam: PRESENT: dry, intact, warm. ABSENT: cyanosis, rash Tubes/Lines: PRESENT: Other - [place] type urinary catheter Laboratory/Radiographs Laboratory Results: 06/22/19 06:05 06/22/19 06:05 06/21/19 06/21/19 06/21/19 15:35 15:35 15:35 WBC 19.2 H RBC 3.86 Hgb 11.9 L Hct 32.3 L MCV 84 MCH 30.9 MCHC 36.9 H RDW 12.7 Plt Count 491 H Seg Neutrophils % 89.3 H VBG pH VBG pCO2 VBG HCO3 VBG Base Excess Sodium 118.4 L* Potassium 2.9 L* Chloride 80 L Carbon Dioxide 23 Anion Gap 15 BUN 2 L Creatinine 0.57 Est GFR ( Amer) > 60 Glucose 140 H Serum Osmolality Lactic Acid 4.7 H Calcium 9.1 Phosphorus Magnesium Total Bilirubin 0.5 AST 39 H Alkaline Phosphatase 67 Ammonia Total Protein 7.4 Albumin 4.4 TSH Urine Color Urine Appearance Urine pH Ur Specific Newborn Urine Protein Urine Glucose (UA) Urine Ketones Urine Blood Urine RBC (Auto) Urine Osmolality 06/21/19 06/21/19 06/21/19 15:35 18:57 18:57 WBC RBC Hgb Hct MCV MCH MCHC RDW Plt Count Seg Neutrophils % VBG pH 7.48 H VBG pCO2 34.8 L VBG HCO3 25.0 VBG Base Excess 1.9 Sodium Potassium Chloride Carbon Dioxide Anion Gap BUN Creatinine Est GFR ( Amer) Glucose Serum Osmolality Lactic Acid 1.1 Calcium Phosphorus Magnesium 1.9 Total Bilirubin AST Alkaline Phosphatase Ammonia Total Protein Albumin TSH Urine Color Urine Appearance Urine pH Ur Specific Newborn Urine Protein Urine Glucose (UA) Urine Ketones Urine Blood Urine RBC (Auto) Urine Osmolality 06/21/19 06/21/19 06/21/19 18:57 18:57 18:57 WBC RBC Hgb Hct MCV MCH MCHC RDW Plt Count Seg Neutrophils % VBG pH VBG pCO2 VBG HCO3 VBG Base Excess Sodium 119.2 L* Potassium 2.7 L* Chloride 85 L Carbon Dioxide 25 Anion Gap 9 BUN 2 L Creatinine 0.52 Est GFR ( Amer) > 60 Glucose 107 Serum Osmolality Lactic Acid Calcium 8.2 L Phosphorus 2.5 Magnesium Total Bilirubin AST Alkaline Phosphatase Ammonia < 8.7 L Total Protein Albumin TSH 0.31 L Urine Color Urine Appearance Urine pH Ur Specific Newborn Urine Protein Urine Glucose (UA) Urine Ketones Urine Blood Urine RBC (Auto) Urine Osmolality 06/21/19 06/21/19 06/21/19 18:57 20:11 20:11 WBC RBC Hgb Hct MCV MCH MCHC RDW Plt Count Seg Neutrophils % VBG pH VBG pCO2 VBG HCO3 VBG Base Excess Sodium Potassium Chloride Carbon Dioxide Anion Gap BUN Creatinine Est GFR ( Amer) Glucose Serum Osmolality 241 L Lactic Acid Calcium Phosphorus Magnesium Total Bilirubin AST Alkaline Phosphatase Ammonia Total Protein Albumin TSH Urine Color STRAW Urine Appearance CLEAR Urine pH 6.0 Ur Specific Newborn 1.006 Urine Protein NEGATIVE Urine Glucose (UA) NEGATIVE Urine Ketones NEGATIVE Urine Blood MODERATE H Urine RBC (Auto) 0 Urine Osmolality 229 L 06/21/19 06/21/19 06/22/19 21:07 23:09 02:59 WBC RBC Hgb Hct MCV MCH MCHC RDW Plt Count Seg Neutrophils % VBG pH VBG pCO2 VBG HCO3 VBG Base Excess Sodium 123.0 L 128.5 L Potassium 2.9 L* 3.4 L Chloride 89 L 95 L Carbon Dioxide 23 26 Anion Gap 11 8 BUN 2 L < 2 L Creatinine 0.51 L 0.55 Est GFR ( Amer) > 60 > 60 Glucose 111 H 105 Serum Osmolality Lactic Acid 1.0 Calcium 8.2 L 8.8 Phosphorus Magnesium Total Bilirubin AST Alkaline Phosphatase Ammonia Total Protein Albumin TSH Urine Color Urine Appearance Urine pH Ur Specific Newborn Urine Protein Urine Glucose (UA) Urine Ketones Urine Blood Urine RBC (Auto) Urine Osmolality 06/22/19 06/22/19 06:05 06:05 WBC 10.5 RBC 3.80 Hgb 11.7 L Hct 32.2 L MCV 85 MCH 30.9 MCHC 36.5 H RDW 12.7 Plt Count 401 Seg Neutrophils % 78.7 H VBG pH VBG pCO2 VBG HCO3 VBG Base Excess Sodium 130.3 L Potassium 3.7 Chloride 96 L Carbon Dioxide 26 Anion Gap 8 BUN 3 L Creatinine 0.58 Est GFR ( Amer) > 60 Glucose 94 Serum Osmolality Lactic Acid Calcium 8.6 Phosphorus 2.3 L Magnesium 2.3 Total Bilirubin 0.7 AST 77 H Alkaline Phosphatase 61 Ammonia Total Protein 7.0 Albumin 4.1 TSH Urine Color Urine Appearance Urine pH Ur Specific Newborn Urine Protein Urine Glucose (UA) Urine Ketones Urine Blood Urine RBC (Auto) Urine Osmolality 06/21/19 06/21/19 15:35 18:57 Creatine Kinase 7207 H Troponin I 0.013 Impressions: Chest X-Ray 06/21/19 15:30 IMPRESSION: NO ACUTE RADIOGRAPHIC FINDING IN THE CHEST. Head CT 06/21/19 16:23 IMPRESSION: 1. No acute intracranial abnormality. 2. Additional findings as above. EVIDENCE OF ACUTE STROKE: NO Lumbar Spine X-Ray 06/21/19 16:25 IMPRESSION: 1. Mild compression deformity of the superior endplate of the L1 vertebra since the previous study dated 02/23/2017. No evidence of retropulsion. Age is indeterminate. Correlation with history suggested and additional imaging may be helpful if clinically indicated. 2. Degenerative disc disease L1-L2, unchanged finding. 3. Examination is somewhat limited due to overlying bowel gas obscuring osseous detail. All labs, radiographs, diagnostic studies and EKGs were personally reviewed: Yes In addition, reports of radiographic and diagnostic studies were read: Yes Assessment and Plan - Diagnosis (1) Hypo-osmolality and hyponatremia Is this a current diagnosis for this admission?: Yes (2) Rhabdomyolysis Is this a current diagnosis for this admission?: Yes (3) Benzodiazepine dependence, continuous Is this a current diagnosis for this admission?: Yes (4) History of pituitary tumor Is this a current diagnosis for this admission?: Yes (5) Anxiety and depression Is this a current diagnosis for this admission?: Yes (6) Hypokalemia Is this a current diagnosis for this admission?: Yes (7) Hyponatremia Is this a current diagnosis for this admission?: Yes (8) Seizure Is this a current diagnosis for this admission?: Yes Plan Summary: Patient has improved and has had no neurological sequelae or deficits. I am concerned that she might have a homonymous hemianopsia and have ordered an MRI with gadolinium. Also asked for records from [place]. I have ordered a repeat CK to follow her muscle injury pattern. She will remain on D5 to prevent overcorrection of the sodium and repeat labs have been ordered. If the patient truly is taking chlorthalidone this would explain her electrolyte abnormalities. Urine sodium is high which would place her in a category of SIADH or loss of fluid and electrolytes with dehydration. Given her dry mouth and the use of chlorthalidone this would be the most likely cause. Continue to monitor. Critical Time Critical Time (minutes): 42 Level of Care: ICU Anticipated discharge: Home Within: within 48 hours -: 1. The care of a critical patient is a dynamic process. This note is a customer account representative synopsis but static in nature. The timeframe for treatments given in order is not necessarily the actual time these treatments may have been done. 2. This patient requires critical care secondary to ongoing requirements for therapy not offered or safe outside the critical care environment. Transfer to a lower level of care will result in altered life or limb morbidity and mortality. 3. Multidisciplinary rounds completed. 4. ABCDE bundle addressed.
[2019-06-22] MEDS: APIXABAN 5 MG TABLET PO SCH ×2 (10:47→17:21)
[2019-06-22] MEDS: LISINOPRIL 10 MG TABLET PO SCH (10:47)
[2019-06-22 11:10] LABS: ANION GAP 6 (5-19); BLOOD UREA NITROGEN 3 mg/dL (7-20); CALCIUM 8.6 mg/dL (8.4-10.2); CARBON DIOXIDE 27 mmol/L (22-30); CHLORIDE 98 mmol/L (98-107); GLUCOSE 109 mg/dL (75-110); POTASSIUM 3.3 mmol/L (3.6-5.0)
[2019-06-22 12:09] LABS: CREATINE KINASE 11472 U/L (30-135)
[2019-06-22] MEDS ORDERED: DEXTROSE 40% GEL 15 GM TUBE PO PRN ×2 (12:30)
[2019-06-22] MEDS ORDERED: GLUCAGON,HUMAN RECOMB 1 MG INJ IM PRN (12:30)
[2019-06-22] MEDS ORDERED: DEXTROSE 50%-WATER 25 GM/50 ML DISP.SYRIN IV PRN ×2 (12:30)
--- NOTE | 2019-06-22 12:30 | PDOC PROGRESS REPORT ---
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 She is now downgraded to telemetry. Patient was seen on morning rounds. She is found resting in bed, comfortably, on room air. She reports fatigue and continued forgetfulness. She complains of general sense of feeling unwell but is unable to describe further. She provides a long convoluted story regarding her occupational history but does not provide any details regarding her medical history when asked directly and is somewhat evasive and or confused regarding her on health. She does describe a pituitary tumor; followed at [place]. Previous records have been requested and follow-up MRI is ordered. Otherwise, she answers yes to each ROS question; headache, dizziness, blurred vision, shortness of breath, chest pain, palpitations, abdominal pain, nausea vomiting. When asked to clarify further, patient states, "I just do not feel well." She actually appears to be quite comfortable and is not noted to be in any acute distress. No concerns per nursing. Reason For Visit: SEIZURE,HYPONATREMIA Physical Exam Vital Signs: Temp Pulse Resp BP Pulse Ox 98.9 F 88 18 146/79 H 96 06/22/19 08:00 06/22/19 08:05 06/22/19 11:00 06/22/19 10:13 06/22/19 11:00 Intake & Output 06/21/19 06/22/19 06/23/19 06:59 06:59 06:59 Intake Total 946 234 Output Total 2800 410 Balance -1854 -176 Weight 69.1 kg General appearance: PRESENT: no acute distress, disheveled, well-developed, well-nourished Head exam: PRESENT: atraumatic, normocephalic Eye exam: PRESENT: conjunctiva pink, EOMI, PERRLA. ABSENT: scleral icterus Ear exam: PRESENT: normal external ear exam Mouth exam: PRESENT: moist, tongue midline Neck exam: ABSENT: carotid bruit, JVD, lymphadenopathy, thyromegaly Respiratory exam: PRESENT: clear to auscultation dimitri, symmetrical, unlabored. ABSENT: rales, rhonchi, wheezes Cardiovascular exam: PRESENT: RRR, +S1, +S2. ABSENT: diastolic murmur, rubs, systolic murmur Pulses: PRESENT: normal dorsalis pedis pul Vascular exam: PRESENT: normal capillary refill GI/Abdominal exam: PRESENT: normal bowel sounds, soft. ABSENT: distended, guarding, mass, organolmegaly, rebound, tenderness Rectal exam: PRESENT: deferred Gentrourinary exam: PRESENT: indwelling catheter Extremities exam: PRESENT: full ROM. ABSENT: calf tenderness, clubbing, pedal edema Neurological exam: PRESENT: alert, awake, oriented to person, oriented to place, oriented to time, oriented to situation, CN II-XII grossly intact. ABSENT: motor sensory deficit Psychiatric exam: PRESENT: normal mood, unusual affect. ABSENT: homicidal ideation, suicidal ideation Skin exam: PRESENT: dry, intact, warm. ABSENT: cyanosis, rash Results Laboratory Results: 06/22/19 06:05 06/22/19 10:38 06/21/19 06/21/19 06/21/19 15:35 15:35 15:35 WBC 19.2 H RBC 3.86 Hgb 11.9 L Hct 32.3 L MCV 84 MCH 30.9 MCHC 36.9 H RDW 12.7 Plt Count 491 H Seg Neutrophils % 89.3 H VBG pH VBG pCO2 VBG HCO3 VBG Base Excess Sodium 118.4 L* Potassium 2.9 L* Chloride 80 L Carbon Dioxide 23 Anion Gap 15 BUN 2 L Creatinine 0.57 Est GFR ( Amer) > 60 Glucose 140 H Serum Osmolality Lactic Acid 4.7 H Calcium 9.1 Phosphorus Magnesium Total Bilirubin 0.5 AST 39 H Alkaline Phosphatase 67 Ammonia Total Protein 7.4 Albumin 4.4 TSH Urine Color Urine Appearance Urine pH Ur Specific Daisy Urine Protein Urine Glucose (UA) Urine Ketones Urine Blood Urine RBC (Auto) Urine Osmolality 06/21/19 06/21/19 06/21/19 15:35 18:57 18:57 WBC RBC Hgb Hct MCV MCH MCHC RDW Plt Count Seg Neutrophils % VBG pH 7.48 H VBG pCO2 34.8 L VBG HCO3 25.0 VBG Base Excess 1.9 Sodium Potassium Chloride Carbon Dioxide Anion Gap BUN Creatinine Est GFR ( Amer) Glucose Serum Osmolality Lactic Acid 1.1 Calcium Phosphorus Magnesium 1.9 Total Bilirubin AST Alkaline Phosphatase Ammonia Total Protein Albumin TSH Urine Color Urine Appearance Urine pH Ur Specific Daisy Urine Protein Urine Glucose (UA) Urine Ketones Urine Blood Urine RBC (Auto) Urine Osmolality 06/21/19 06/21/19 06/21/19 18:57 18:57 18:57 WBC RBC Hgb Hct MCV MCH MCHC RDW Plt Count Seg Neutrophils % VBG pH VBG pCO2 VBG HCO3 VBG Base Excess Sodium 119.2 L* Potassium 2.7 L* Chloride 85 L Carbon Dioxide 25 Anion Gap 9 BUN 2 L Creatinine 0.52 Est GFR ( Amer) > 60 Glucose 107 Serum Osmolality Lactic Acid Calcium 8.2 L Phosphorus 2.5 Magnesium Total Bilirubin AST Alkaline Phosphatase Ammonia < 8.7 L Total Protein Albumin TSH 0.31 L Urine Color Urine Appearance Urine pH Ur Specific Daisy Urine Protein Urine Glucose (UA) Urine Ketones Urine Blood Urine RBC (Auto) Urine Osmolality 06/21/19 06/21/19 06/21/19 18:57 20:11 20:11 WBC RBC Hgb Hct MCV MCH MCHC RDW Plt Count Seg Neutrophils % VBG pH VBG pCO2 VBG HCO3 VBG Base Excess Sodium Potassium Chloride Carbon Dioxide Anion Gap BUN Creatinine Est GFR ( Amer) Glucose Serum Osmolality 241 L Lactic Acid Calcium Phosphorus Magnesium Total Bilirubin AST Alkaline Phosphatase Ammonia Total Protein Albumin TSH Urine Color STRAW Urine Appearance CLEAR Urine pH 6.0 Ur Specific Daisy 1.006 Urine Protein NEGATIVE Urine Glucose (UA) NEGATIVE Urine Ketones NEGATIVE Urine Blood MODERATE H Urine RBC (Auto) 0 Urine Osmolality 229 L 06/21/19 06/21/19 06/22/19 21:07 23:09 02:59 WBC RBC Hgb Hct MCV MCH MCHC RDW Plt Count Seg Neutrophils % VBG pH VBG pCO2 VBG HCO3 VBG Base Excess Sodium 123.0 L 128.5 L Potassium 2.9 L* 3.4 L Chloride 89 L 95 L Carbon Dioxide 23 26 Anion Gap 11 8 BUN 2 L < 2 L Creatinine 0.51 L 0.55 Est GFR ( Amer) > 60 > 60 Glucose 111 H 105 Serum Osmolality Lactic Acid 1.0 Calcium 8.2 L 8.8 Phosphorus Magnesium Total Bilirubin AST Alkaline Phosphatase Ammonia Total Protein Albumin TSH Urine Color Urine Appearance Urine pH Ur Specific Daisy Urine Protein Urine Glucose (UA) Urine Ketones Urine Blood Urine RBC (Auto) Urine Osmolality 06/22/19 06/22/1920 06:05 06:05 10:38 WBC 10.5 RBC 3.80 Hgb 11.7 L Hct 32.2 L MCV 85 MCH 30.9 MCHC 36.5 H RDW 12.7 Plt Count 401 Seg Neutrophils % 78.7 H VBG pH VBG pCO2 VBG HCO3 VBG Base Excess Sodium 130.3 L 131.0 L Potassium 3.7 3.3 L Chloride 96 L 98 Carbon Dioxide 26 27 Anion Gap 8 6 BUN 3 L 3 L Creatinine 0.58 0.53 Est GFR ( Amer) > 60 > 60 Glucose 94 109 Serum Osmolality Lactic Acid Calcium 8.6 8.6 Phosphorus 2.3 L Magnesium 2.3 Total Bilirubin 0.7 AST 77 H Alkaline Phosphatase 61 Ammonia Total Protein 7.0 Albumin 4.1 TSH Urine Color Urine Appearance Urine pH Ur Specific Daisy Urine Protein Urine Glucose (UA) Urine Ketones Urine Blood Urine RBC (Auto) Urine Osmolality 06/21/19 06/21/19 06/22/19 15:35 18:57 10:38 Creatine Kinase 7207 H 84371 H Troponin I 0.013 Impressions: Chest X-Ray 06/21/19 15:30 IMPRESSION: NO ACUTE RADIOGRAPHIC FINDING IN THE CHEST. Head CT 06/21/19 16:23 IMPRESSION: 1. No acute intracranial abnormality. 2. Additional findings as above. EVIDENCE OF ACUTE STROKE: NO Lumbar Spine X-Ray 06/21/19 16:25 IMPRESSION: 1. Mild compression deformity of the superior endplate of the L1 vertebra since the previous study dated 02/23/2017. No evidence of retropulsion. Age is indeterminate. Correlation with history suggested and additional imaging may be helpful if clinically indicated. 2. Degenerative disc disease L1-L2, unchanged finding. 3. Examination is somewhat limited due to overlying bowel gas obscuring osseous detail. Assessment and Plan - Diagnosis (1) Hypo-osmolality and hyponatremia Is this a current diagnosis for this admission?: Yes Plan: Patient was initially admitted to the ICU and received 3% NS overnight. Na 118.4-> 131.0 Now on D5W to prevent overcorrection. Likely secondary to chlorthalidone use. Follow-up chemistries. (2) Seizure Is this a current diagnosis for this admission?: Yes Plan: Head CT was negative for acute findings. Brain MRI pending. Secondary to hyponatremia. Seizure precautions in place. Fall precautions. (3) Rhabdomyolysis Qualifiers: Rhabdomyolysis type: non-traumatic Qualified Code(s): M62.82 - Rhabdomyolysis Is this a current diagnosis for this admission?: Yes Plan: Secondary to seizure activity. CK 7207-> 50055 Continue IV fluids. We will keep n.p.o. pending brain MRI; if reassuring, can start on clear liquids this afternoon. Follow-up chemistry and CK. (4) History of pituitary tumor Is this a current diagnosis for this admission?: Yes Plan: Records from [place] have been requested. Brain MRI pending. (5) Benzodiazepine dependence, continuous Is this a current diagnosis for this admission?: Yes Plan: Continue home dose Xanax. Monitor for evidence of withdrawal. (6) Hypokalemia Is this a current diagnosis for this admission?: Yes Plan: Received IV replacement. Follow-up chemistry. (7) Anxiety and depression Is this a current diagnosis for this admission?: Yes Plan: Continue home dose Thorazine and Eliquis. Consider psychiatric evaluation. - Time Time Spent with patient: 25-34 minutes Medications reviewed and adjusted accordingly: Yes Anticipated discharge: Home Within: within 72 hours
[2019-06-22] MEDS ORDERED: 1/2 NORMAL SALINE 1,000 ML IV ONE (12:38)
[2019-06-22] MEDS: ALPRAZOLAM 0.5 MG TABLET PO SCH ×3 (13:09→21:31)
--- NOTE | 2019-06-22 13:29 | RADIOLOGY REPORT (SQ) ---
EXAM DESCRIPTION: MRI HEAD COMBO IMAGES COMPLETED DATE/TIME: 06/22/2019 12:22 pm REASON FOR STUDY: Pituitary tumor COMPARISON: CT brain 12/27/2013, 06/21/2019 CT cervical spine 12/27/2013 TECHNIQUE: Multiplanar imaging includes noncontrasted T1, T2, FLAIR, diffusion with ADC map and post gadolinium contrast T1 sequences. Dedicated pituitary imaging with thin section coronal and sagittal T2, T1 precontrast, T1 post contra sted images. Images stored on PACS. CONTRAST TYPE AND DOSE: 15 mL Dotarem. RENAL FUNCTION: Not indicated. ACR Type II contrast agent associated with few, if any, unconfounded cases of NSF LIMITATIONS: None. 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 This measures 15 mm c raniocaudad by a 17 mm transverse by 14 mm AP. This flattens the undersurface of the optic chiasm co ochoa image 8 and sagittal images 5-9. No definite cavernous sinus involvement. CSF SPACES: Normal in size and contour. No hemorrhage. CEREBRUM: Sulci and gyri normal in size and contour. Normal white matter signal on FLAIR imaging. No evidence of hemorrhage, mass, or extraaxial fluid collection. No abnormal enhancement post contrast. POSTERIOR FOSSA: No signal alteration. No hemorrhage. No edema, masses, or mass effect. Internal estefani tory canals, cerebellopontine angles, mastoids normal. No enhancing lesions. No abnormal enhancement post contrast. DIFFUSION IMAGING: Negative for acute or subacute infarction. ORBITS: No masses. Globes normal. PARANASAL SINUSES: No fluid levels. Mucosa normal. OTHER: Developmental anomaly of the craniocervical junction. The right and left occipital condyles a nd lateral masses of C1 are fused, with an incomplete posterior C1 ring. 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 TECHNICAL DOCUMENTATION: JOB ID: [id number] [employer]- All Rights Reserved Reading location - IP/workstation name: [id number]
[2019-06-22] MEDS: DEXTROSE 5%-WATER 1000 ML 1,000 ML IV PRN (14:47)
[2019-06-22 16:52] LABS: BLOOD UREA NITROGEN 3 mg/dL (7-20); CALCIUM 8.1 mg/dL (8.4-10.2); GLUCOSE 121 mg/dL (75-110)
[2019-06-22 16:57] LABS: CARBON DIOXIDE 28 mmol/L (22-30); CHLORIDE 97 mmol/L (98-107)
[2019-06-22 17:12] LABS: ANION GAP 4 (5-19)
[2019-06-22] MEDS ORDERED: INSULIN LISPRO 100 UNIT/ML 3 ML VIAL SUBCUT SCH (18:00)
[2019-06-23] MEDS: DEXTROSE 5%-WATER 1000 ML 1,000 ML IV PRN (01:56)
[2019-06-23] MEDS: OXYCODONE-ACETAMINOPHEN 5-325 MG TABLET PO PRN ×5 (01:58→21:34)
[2019-06-23 06:12] LABS: ABSOLUTE BASOPHILS # (AUTO) 0.1 10^3/uL (0.0-0.2); ABSOLUTE LYMPHOCYTES (AUTO) 1.4 10^3/uL (0.5-4.7); ABSOLUTE MONOCYTES (AUTO) 0.6 10^3/uL (0.1-1.4); ABSOLUTE NEUT (AUTO) 5.9 10^3/uL (1.7-8.2); BASOPHILS % (AUTO) 0.6 % (0-2); EOSINOPHILS % (AUTO) 0.3 % (0-6); HEMATOCRIT 29.4 % (36.0-47.0); HEMOGLOBIN 10.7 g/dL (12.0-15.5); MEAN CORPUSCULAR HEMOGLOBIN 31.6 pg (27.0-33.4); MEAN CORPUSCULAR HGB CONC 36.5 g/dL (32.0-36.0); MEAN CORPUSCULAR VOLUME 87 fl (80-97); PLATELET COUNT 328 10^3/uL (150-450); RED BLOOD COUNT 3.39 10^6/uL (3.72-5.28); RED CELL DISTRIBUTION WIDTH 12.6 % (11.5-14.0); SEGMENTED NEUTROPHILS % (AUTO) 74.1 % (42-78); TOTAL CELLS COUNTED % (AUTO) 100 %; WHITE BLOOD COUNT 7.9 10^3/uL (4.0-10.5)
[2019-06-23 06:39] LABS: ANION GAP 5 (5-19); BLOOD UREA NITROGEN 3 mg/dL (7-20); CALCIUM 8.2 mg/dL (8.4-10.2); CARBON DIOXIDE 29 mmol/L (22-30); CHLORIDE 97 mmol/L (98-107); GLUCOSE 119 mg/dL (75-110); PHOSPHORUS 1.9 mg/dL (2.5-4.5); POTASSIUM 3.3 mmol/L (3.6-5.0)
[2019-06-23 07:02] LABS: CREATINE KINASE 11062 U/L (30-135)
[2019-06-23] MEDS: NORMAL SALINE 1000 ML 1,000 ML IV PRN ×3 (08:10→22:32)
[2019-06-23] MEDS: APIXABAN 5 MG TABLET PO SCH ×2 (10:48→17:19)
[2019-06-23] MEDS: LISINOPRIL 10 MG TABLET PO SCH (10:48)
[2019-06-23] MEDS: ALPRAZOLAM 0.5 MG TABLET PO SCH ×4 (10:48→21:35)
[2019-06-23] MEDS: CHLORPROMAZINE HCL 25 MG TABLET PO SCH (10:54)
--- NOTE | 2019-06-23 12:58 | PDOC PROGRESS REPORT ---
Subjective Progress Note for:: 06/23/19 Subjective:: The patient is a 59-year-old female with a past medical history significant for hypertension, chronic anxiety, opiate dependent chronic pain, currently on Eliquis for unknown reason, who was admitted to the [facility] bean ro[facility] helper service on 06/21/2019 with hyponatremia. She is now downgraded to telemetry. Patient was seen on morning rounds. She is found resting in bed, comfortably, on room air. She reports continued fatigue and generalized weakness. She also reports back and generalized muscle aches, however, she declines offer for muscle relaxant. She reports headache but again declines medication. 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 She does describe a pituitary tumor; followed at [employer]. Previous records have been requested. Otherwise, she denies dizziness, blurred vision, shortness of breath, chest pain, palpitations, abdominal pain, nausea vomiting. She has no other questions or concerns. No concerns per nursing. Reason For Visit: SEIZURE,HYPONATREMIA Physical Exam Vital Signs: Temp Pulse Resp BP Pulse Ox 98.1 F 84 16 154/85 H 99 06/23/19 12:00 06/23/19 12:00 06/23/19 12:00 06/23/19 12:00 06/23/19 12:00 Intake & Output 06/22/19 06/23/19 06/24/19 06:59 06:59 06:59 Intake Total 946 4111 1877 Output Total 2800 1060 Balance -1854 3051 1877 Weight 69.1 kg 68.2 kg General appearance: PRESENT: no acute distress, well-developed, well-nourished Head exam: PRESENT: atraumatic, normocephalic Eye exam: PRESENT: conjunctiva pink, EOMI, PERRLA. ABSENT: scleral icterus Mouth exam: PRESENT: moist, tongue midline Respiratory exam: PRESENT: clear to auscultation dimitri, symmetrical, unlabored. ABSENT: rales, rhonchi, wheezes Cardiovascular exam: PRESENT: RRR, +S1, +S2. ABSENT: diastolic murmur, rubs, systolic murmur Pulses: PRESENT: normal dorsalis pedis pul Vascular exam: PRESENT: normal capillary refill Gentrourinary exam: PRESENT: indwelling catheter Extremities exam: PRESENT: full ROM. ABSENT: calf tenderness, clubbing, pedal edema Musculoskeletal exam: PRESENT: ambulatory Neurological exam: PRESENT: alert, awake, oriented to person, oriented to place, oriented to time, oriented to situation, CN II-XII grossly intact. ABSENT: motor sensory deficit Psychiatric exam: PRESENT: appropriate affect, normal mood. ABSENT: homicidal ideation, suicidal ideation Skin exam: PRESENT: dry, intact, warm. ABSENT: cyanosis, rash Results Laboratory Results: 06/23/19 04:43 06/23/19 04:43 06/22/19 06/23/19 06/23/19 16:18 04:43 04:43 WBC 7.9 RBC 3.39 L Hgb 10.7 L Hct 29.4 L MCV 87 MCH 31.6 MCHC 36.5 H RDW 12.6 Plt Count 328 Seg Neutrophils % 74.1 Sodium 128.5 L 130.5 L Potassium 3.0 L* 3.3 L Chloride 97 L 97 L Carbon Dioxide 28 29 Anion Gap 4 L 5 BUN 3 L 3 L Creatinine 0.49 L 0.51 L Est GFR ( Amer) > 60 > 60 Glucose 121 H 119 H Calcium 8.1 L 8.2 L Phosphorus 1.9 L Magnesium 2.3 06/21/19 06/21/19 06/22/19 15:35 18:57 10:38 Creatine Kinase 7207 H 07635 H Troponin I 0.013 06/23/19 04:43 Creatine Kinase 85129 H Troponin I Impressions: Chest X-Ray 06/21/19 15:30 IMPRESSION: NO ACUTE RADIOGRAPHIC FINDING IN THE CHEST. Head CT 06/21/19 16:23 IMPRESSION: 1. No acute intracranial abnormality. 2. Additional findings as above. EVIDENCE OF ACUTE STROKE: NO Lumbar Spine X-Ray 06/21/19 16:25 IMPRESSION: 1. Mild compression deformity of the superior endplate of the L1 vertebra since the previous study dated 02/23/2017. No evidence of retropulsion. Age is indeterminate. Correlation with history suggested and additional imaging may be helpful if clinically indicated. 2. Degenerative disc disease L1-L2, unchanged finding. 3. Examination is somewhat limited due to overlying bowel gas obscuring osseous detail. 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 Assessment and Plan - Diagnosis (1) Hypo-osmolality and hyponatremia Is this a current diagnosis for this admission?: Yes Plan: Patient was initially admitted to the ICU and received 3% NS overnight. Na 118.4-> 131.0-> 128.5-> 130.5 Continuing IV fluids Likely secondary to chlorthalidone use. Follow serial chemistries. (2) Seizure Is this a current diagnosis for this admission?: Yes Plan: Head CT was negative for acute findings. 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 Secondary to hyponatremia. Seizure precautions in place. Fall precautions. (3) Rhabdomyolysis Qualifiers: Rhabdomyolysis type: non-traumatic Qualified Code(s): M62.82 - Rhabdomyolysis Is this a current diagnosis for this admission?: Yes Plan: Secondary to seizure activity. CK 7207-> 42035-> 98126 Continue IV fluids. Encourage po fluids. Follow-up chemistry and CK. (4) History of pituitary tumor Is this a current diagnosis for this admission?: Yes Plan: Records from [place] have been requested. 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 (5) Benzodiazepine dependence, continuous Is this a current diagnosis for this admission?: Yes Plan: Continue home dose Xanax. Monitor for evidence of withdrawal. (6) Hypokalemia Is this a current diagnosis for this admission?: Yes Plan: Oral replacement today Follow-up chemistry. (7) Anxiety and depression Is this a current diagnosis for this admission?: Yes Plan: Continue home dose Thorazine and Xanax Consider psychiatric evaluation. Will discuss w/ mental health today as the patient continues to have an incongruent personal history and appears to be quite fixated on her current hospital admission. - Time Time Spent with patient: 25-34 minutes Medications reviewed and adjusted accordingly: Yes Anticipated discharge: Home Within: within 48 hours
[2019-06-23] MEDS ORDERED: POTASSIUM CHLORIDE 10 MEQ TABLET.ER PO ONE (13:30)
[2019-06-23 16:48] LABS: BLOOD UREA NITROGEN 3 mg/dL (7-20); CALCIUM 8.2 mg/dL (8.4-10.2); GLUCOSE 93 mg/dL (75-110); POTASSIUM 3.7 mmol/L (3.6-5.0)
[2019-06-23 16:54] LABS: CARBON DIOXIDE 31 mmol/L (22-30); CHLORIDE 99 mmol/L (98-107)
[2019-06-23 16:57] LABS: ANION GAP 4 (5-19)
[2019-06-24] MEDS: NORMAL SALINE 1000 ML 1,000 ML IV PRN ×4 (03:35→19:45)
[2019-06-24] MEDS: OXYCODONE-ACETAMINOPHEN 5-325 MG TABLET PO PRN ×4 (03:37→19:50)
[2019-06-24 05:29] LABS: ABSOLUTE BASOPHILS # (AUTO) 0.1 10^3/uL (0.0-0.2); ABSOLUTE EOSINOPHILS # (AUTO) 0.1 10^3/uL (0.0-0.6); ABSOLUTE LYMPHOCYTES (AUTO) 1.5 10^3/uL (0.5-4.7); ABSOLUTE MONOCYTES (AUTO) 0.7 10^3/uL (0.1-1.4); ABSOLUTE NEUT (AUTO) 6.2 10^3/uL (1.7-8.2); BASOPHILS % (AUTO) 1.1 % (0-2); EOSINOPHILS % (AUTO) 1.7 % (0-6); HEMATOCRIT 29.2 % (36.0-47.0); HEMOGLOBIN 10.4 g/dL (12.0-15.5); LYMPHOCYTES % (AUTO) 17.7 % (13-45); MEAN CORPUSCULAR HEMOGLOBIN 31.1 pg (27.0-33.4); MEAN CORPUSCULAR HGB CONC 35.6 g/dL (32.0-36.0); MEAN CORPUSCULAR VOLUME 88 fl (80-97); MONOCYTES % (AUTO) 8.2 % (3-13); PLATELET COUNT 285 10^3/uL (150-450); RED BLOOD COUNT 3.34 10^6/uL (3.72-5.28); RED CELL DISTRIBUTION WIDTH 13.1 % (11.5-14.0); SEGMENTED NEUTROPHILS % (AUTO) 71.3 % (42-78); TOTAL CELLS COUNTED % (AUTO) 100 %; WHITE BLOOD COUNT 8.7 10^3/uL (4.0-10.5)
[2019-06-24 08:10] LABS: ANION GAP 7 (5-19); BLOOD UREA NITROGEN 3 mg/dL (7-20); CALCIUM 8.2 mg/dL (8.4-10.2); CARBON DIOXIDE 24 mmol/L (22-30); CHLORIDE 107 mmol/L (98-107); GLUCOSE 112 mg/dL (75-110); POTASSIUM 3.5 mmol/L (3.6-5.0)
[2019-06-24 08:27] LABS: CREATINE KINASE 12302 U/L (30-135)
[2019-06-24] MEDS: CHLORPROMAZINE HCL 25 MG TABLET PO SCH ×2 (09:33→10:00)
[2019-06-24] MEDS: ALPRAZOLAM 0.5 MG TABLET PO SCH ×4 (09:33→21:08)
[2019-06-24] MEDS: APIXABAN 5 MG TABLET PO SCH ×2 (09:34→18:04)
[2019-06-24] MEDS: LISINOPRIL 10 MG TABLET PO SCH (09:34)
--- NOTE | 2019-06-24 14:17 | PDOC PROGRESS REPORT ---
Subjective Progress Note for:: 06/24/19 Subjective:: The patient is a 59-year-old female with a past medical history significant for hypertension, chronic anxiety, opiate dependent chronic pain, currently on Eliquis for unknown reason, who was admitted to the course developer service on 06/21/2019 with hyponatremia. She is now downgraded to telemetry. Patient was seen on morning rounds. She is found resting in the recliner, comfortably, on room air. She reports fatigue and generalized discomfort. Otherwise, she states she is feeling well. She denies dizziness, blurred vision, shortness of breath, chest pain, palpita tions, abdominal pain, nausea vomiting. She has no questions or concerns. No concerns per nursing. Reason For Visit: SEIZURE,HYPONATREMIA Physical Exam Vital Signs: Temp Pulse Resp BP Pulse Ox 98.2 F 85 20 141/73 H 99 06/24/19 11:57 06/24/19 11:57 06/24/19 11:57 06/24/19 11:57 06/24/19 11:57 Intake & Output 06/23/19 06/24/19 06/25/19 06:59 06:59 06:59 Intake Total 4111 5339 1640 Output Total 1060 550 900 Balance 3051 4789 740 Weight 68.2 kg 72.2 kg General appearance: PRESENT: no acute distress, well-developed, well-nourished Head exam: PRESENT: atraumatic, normocephalic Eye exam: PRESENT: conjunctiva pink, EOMI, PERRLA. ABSENT: scleral icterus Mouth exam: PRESENT: moist, tongue midline Respiratory exam: PRESENT: clear to auscultation dimitri, symmetrical, unlabored. ABSENT: rales, rhonchi, wheezes Cardiovascular exam: PRESENT: RRR, +S1, +S2. ABSENT: diastolic murmur, rubs, systolic murmur Pulses: PRESENT: normal dorsalis pedis pul Vascular exam: PRESENT: normal capillary refill Rectal exam: PRESENT: deferred Extremities exam: PRESENT: full ROM. ABSENT: calf tenderness, clubbing, pedal edema Musculoskeletal exam: PRESENT: ambulatory Neurological exam: PRESENT: alert, awake, oriented to person, oriented to place, oriented to time, oriented to situation, CN II-XII grossly intact. ABSENT: motor sensory deficit Psychiatric exam: PRESENT: anxious, appropriate affect. ABSENT: homicidal ideation, suicidal ideation Focused psych exam: PRESENT: other - fixation on medical staff, grandiose stat ements and exaggerated emotions/behaviors Skin exam: PRESENT: dry, intact, warm. ABSENT: cyanosis, rash Results Laboratory Results: 06/24/19 04:44 06/24/19 04:44 06/23/19 06/24/19 06/24/19 16:04 04:44 04:44 WBC 8.7 RBC 3.34 L Hgb 10.4 L Hct 29.2 L MCV 88 MCH 31.1 MCHC 35.6 RDW 13.1 Plt Count 285 Seg Neutrophils % 71.3 Sodium 133.7 L Potassium 3.7 Chloride 99 Carbon Dioxide 31 H Anion Gap 4 L BUN 3 L Creatinine 0.48 L Est GFR ( Amer) > 60 Glucose 93 Calcium 8.2 L Phosphorus 2.0 L Magnesium 1.9 06/24/19 04:44 WBC RBC Hgb Hct MCV MCH MCHC RDW Plt Count Seg Neutrophils % Sodium 137.6 Potassium 3.5 L Chloride 107 Carbon Dioxide 24 Anion Gap 7 BUN 3 L Creatinine 0.51 L Est GFR ( Amer) > 60 Glucose 112 H Calcium 8.2 L Phosphorus Magnesium 06/21/19 06/21/19 06/22/19 15:35 18:57 10:38 Creatine Kinase 7207 H 46759 H Troponin I 0.013 06/23/19 06/24/19 04:43 04:44 Creatine Kinase 39621 H 54820 H Troponin I Impressions: Chest X-Ray 06/21/19 15:30 IMPRESSION: NO ACUTE RADIOGRAPHIC FINDING IN THE CHEST. Head CT 06/21/19 16:23 IMPRESSION: 1. No acute intracranial abnormality. 2. Additional findings as above. EVIDENCE OF ACUTE STROKE: NO Lumbar Spine X-Ray 06/21/19 16:25 IMPRESSION: 1. Mild compression deformity of the superior endplate of the L1 vertebra since the previous study dated 02/23/2017. No evidence of retropulsion. Age is indeterminate. Correlation with history suggested and additional imaging may be helpful if clinically indicated. 2. Degenerative disc disease L1-L2, unchanged finding. 3. Examination is somewhat limited due to overlying bowel gas obscuring osseous detail. 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 Assessment and Plan - Diagnosis (1) Hypo-osmolality and hyponatremia Is this a current diagnosis for this admission?: Yes Plan: Resolved. Patient was initially admitted to the ICU and received 3% NS overnight. Na 118.4-> 131.0-> 128.5-> 130.5-> 137.6 Continuing IV fluids r/t rhabdomyolysis Likely secondary to chlorthalidone use; have discontinued. (2) Seizure Is this a current diagnosis for this admission?: Yes Plan: Head CT was negative for acute findings. 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 Secondary to hyponatremia. Seizure precautions in place. Fall precautions. (3) Rhabdomyolysis Qualifiers: Rhabdomyolysis type: non-traumatic Qualified Code(s): M62.82 - Rhabdomyolysis Is this a current diagnosis for this admission?: Yes Plan: Secondary to seizure activity. CK 7207-> 91652-> 42553-> 39950 Continue IV fluids. Encourage po fluids. Follow-up chemistry and CK. (4) History of pituitary tumor Is this a current diagnosis for this admission?: Yes Plan: Records from [place] have been requested. 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 Follow up with established providers at [facility] (5) Benzodiazepine dependence, continuous Is this a current diagnosis for this admission?: Yes Plan: Verified with the [place] controlled substance database; patient is prescribed alprazolam 1 mg # 120/month Continue 1/2 home dose Xanax scheduled four times daily. Monitor for evidence of withdrawal. (6) Opiate dependence, continuous Is this a current diagnosis for this admission?: Yes Plan: But with the [place] controlled substance database. Patient is prescribed Percocet 5/325 #150 monthly. Continue Percocet 5/325 every 6 hours as needed. (7) Hypokalemia Is this a current diagnosis for this admission?: Yes Plan: Overall improved following IV and oral replacement. Follow-up chemistry. (8) Anxiety and depression Is this a current diagnosis for this admission?: Yes Plan: Per patient, she is not prescribed Thorazine as a home medication. Nursing has verified with the pharmacy that this was listed as a home medication upon admission. We will discontinue Thorazine and continue reduced dose Xanax as mentioned above. I have asked for mental health evaluation; primarily for assistance in evaluating whether or not the patient's chlorthalidone use was intentional for secondary gain (not necessarily suicide attempt). Patient continues to have an incongruent personal history and appears to be quite fixated on her current hospital admission. 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 She volunteers numerous stories of having "personally saved the life of" multiple family members on numerous occasions. She also is quite grandiose and exaggerated in her interactions and attempts to thank/hartmann with care team members. Concerned that the patient may be displaying some fixation on healthcare/healthcare providers rather than just having a gregarious personality. Admittedly, this is the first time I have met this patient and psychiatric evaluations are not my expertise. Therefore, I have asked the mental health team to provide an evaluation to ensure that the patient is psychiatrically stable for discharge. - Time Time Spent with patient: 35 or more minutes Medications reviewed and adjusted accordingly: Yes Anticipated discharge: Home
--- NOTE | 2019-06-24 21:27 | PSYCHOLOGICAL NOTE ---
Psych Note - Psych Note Date seen by psych provider: 06/24/19 Time seen by psych provider: 18:00 Psych Note: Reason for consult: Concerns for Munchausen syndrome Patient is a 59-year-old female who was admitted to the hospital subsequent to a seizure. Patient was resting in the bed watching TV when clinician entered the room. Reports she was hospitalized because "I had a seizure or 2." Patient denies having a seizure history. Patient states seizure was brought on by her sodium level being "dangerously low." Patient states that she takes calcium and sodium supplements to ensure her sodium at appropriate levels. Patient reports she was prescribed Chlorthalidone to prevent fluid retention. Patient states the medication is what made her sodium level drop. Patient reports a medical conditions related to her heart. Patient also reports concerns with anxiety. Patient reports a family history of heart disease and anxiety. Patient reports her mother was a nurse at [employer]. 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. Clinician formed patient attending physician searched the nursing database could not find information related to the patient being a nurse. Patient states that she has not practice in a while and is not sure that her name would still populate. Patient then, focused her attention on an earache. Patient spoke about how she and her take care of each other. Patient denies suicidal and homicidal ideation. Patient denies auditory visual hallucinations. Patient denies a history of mental health concerns other than anxiety. Patient replied "oh he will no" when asked if she would ever engage in behavior to be admitted to the hospital or any medical or psychiatric facility. Patient reports the last time she was hospitalized was a year ago when she went in for a routine CAT scan and subsequently passed out after the scan. Patient reports the cause of her passing out was due to a heart flutter. Patient reports she was subsequently placed on Eliquis of concern for blood clots that had broken up. Patient is alert and oriented to person, place, time and circumstance. Mood is normal with congruent affect. Patient denies suicidal and homicidal ideations. Delusions are absent and behavior is congruent with an intact reality based presentation (i.e., organized and linear through processes). There is no observed behavior that suggests patient is responding to internal stimuli. Patient is able to engage in organized, rational thought processes. Patient is able to express needs and wants in a logical manner. Patient denies current auditory and visual hallucinations. Eye contact is appropriate. Conversational speech is within normal rate, tone, and prosody. Intellectual ability appears to be within average range. Attention and concentration are good. Insight, judgment and impulse control are currently poor. Impression/Plan: Patient is cleared from acute psychiatric services. Patient denies suicidal and homicidal ideations. There is no observed behavior that suggests patient is responding to internal stimuli. Patient engaged in organized, rational, linear thought processes and was able to express needs and wants in a logical manner. Patient was last seen in the emergency department on 10/05/2017. Patient's last hospitalization was approximately a year ago as a result of a seemingly legitimate heart condition. Patient discussed how she was ready to go to her home to be with her children, grandchildren, and her own bed. There is no evidence to support this hospitalization was an effort to be hospitalized for secondary gain such as Munchhausen syndrome. If patient were experiencing Munchhausen syndrome, there would be evidence of frequent visits to medical facilities such as this ED. Dr. Morris was consulted on the care and management of this patient; attending physician is in agreement with recommendations and disposition.
[2019-06-25] MEDS: OXYCODONE-ACETAMINOPHEN 5-325 MG TABLET PO PRN ×5 (02:02→23:29)
[2019-06-25] MEDS: NORMAL SALINE 1000 ML 1,000 ML IV PRN ×5 (02:02→23:30)
[2019-06-25 09:20] LABS: ANION GAP 6 (5-19); BLOOD UREA NITROGEN 7 mg/dL (7-20); CARBON DIOXIDE 25 mmol/L (22-30); CHLORIDE 104 mmol/L (98-107); GLUCOSE 175 mg/dL (75-110); POTASSIUM 3.4 mmol/L (3.6-5.0)
[2019-06-25 09:39] LABS: CREATINE KINASE 12357 U/L (30-135)
[2019-06-25] MEDS: APIXABAN 5 MG TABLET PO SCH ×2 (10:40→17:30)
[2019-06-25] MEDS: ALPRAZOLAM 0.5 MG TABLET PO SCH ×4 (10:40→21:35)
[2019-06-25] MEDS ORDERED: LISINOPRIL 10 MG TABLET PO ONE (11:00)
--- NOTE | 2019-06-25 11:35 | PDOC PROGRESS REPORT ---
Subjective Progress Note for:: 06/25/19 Subjective:: The patient is a 59-year-old female with a past medical history significant for hypertension, chronic anxiety, opiate dependent chronic pain, currently on Eliquis for unknown reason, who was admitted to the online editor service on 06/21/2019 with hyponatremia. She is now downgraded to telemetry. Patient was seen on morning rounds. She is found resting in bed, comfortably, on room air. She reports fatigue and generalized discomfort. She also reports being incontinent of loose stool today; per nursing, she actually had a formed bowel movement in the bed. Is unclear as to why this occurred and when the patient is asked shortly later about further abdominal symptoms, she tells me that she is having abdominal discomfort and frequent watery stools when just mom ents prior she had said otherwise. She also reports Left ear discomfort. She denies dizziness, blurred vision, shortness of breath, chest pain, palpitations. She has no questions or concerns. No concerns per nursing. Reason For Visit: SEIZURE,HYPONATREMIA Physical Exam Vital Signs: Temp Pulse Resp BP Pulse Ox 98.8 F 97 18 175/84 H 100 06/25/19 08:00 06/25/19 08:00 06/25/19 08:00 06/25/19 08:00 06/25/19 08:00 Intake & Output 06/24/19 06/25/19 06/26/19 06:59 06:59 06:59 Intake Total 5339 6433 Output Total 550 4525 Balance 4789 1908 Weight 72.2 kg 72.4 kg General appearance: PRESENT: no acute distress, well-developed, well-nourished Head exam: PRESENT: atraumatic, normocephalic Eye exam: PRESENT: conjunctiva pink, EOMI, PERRLA. ABSENT: scleral icterus Mouth exam: PRESENT: moist, tongue midline Teeth exam: PRESENT: poor dentation Respiratory exam: PRESENT: clear to auscultation dimitri, symmetrical, unlabored. ABSENT: rales, rhonchi, wheezes Cardiovascular exam: PRESENT: RRR, +S1, +S2. ABSENT: diastolic murmur, rubs, systolic murmur Pulses: PRESENT: normal dorsalis pedis pul Vascular exam: PRESENT: normal capillary refill GI/Abdominal exam: PRESENT: normal bowel sounds, soft. ABSENT: distended, guarding, mass, organolmegaly, rebound, tenderness Rectal exam: PRESENT: deferred Extremities exam: PRESENT: full ROM. ABSENT: calf tenderness, clubbing, pedal edema Musculoskeletal exam: PRESENT: ambulatory Neurological exam: PRESENT: alert, awake, oriented to person, oriented to place, oriented to time, oriented to situation, CN II-XII grossly intact. ABSENT: motor sensory deficit Psychiatric exam: PRESENT: normal mood, unusual affect. ABSENT: homicidal ideation, suicidal ideation Skin exam: PRESENT: dry, intact, warm. ABSENT: cyanosis, rash Results Laboratory Results: 06/24/19 04:44 06/25/19 08:33 06/25/19 08:33 Sodium 135.3 L Potassium 3.4 L Chloride 104 Carbon Dioxide 25 Anion Gap 6 BUN 7 Creatinine 0.45 L Est GFR ( Amer) > 60 Glucose 175 H Calcium 8.0 L 06/21/19 06/21/19 06/22/19 15:35 18:57 10:38 Creatine Kinase 7207 H 44192 H Troponin I 0.013 06/23/19 06/24/19 06/25/19 04:43 04:44 08:33 Creatine Kinase 49945 H 44702 H 74047 H Troponin I Impressions: Chest X-Ray 06/21/19 15:30 IMPRESSION: NO ACUTE RADIOGRAPHIC FINDING IN THE CHEST. Head CT 06/21/19 16:23 IMPRESSION: 1. No acute intracranial abnormality. 2. Additional findings as above. EVIDENCE OF ACUTE STROKE: NO Lumbar Spine X-Ray 06/21/19 16:25 IMPRESSION: 1. Mild compression deformity of the superior endplate of the L1 vertebra since the previous study dated 02/23/2017. No evidence of retropulsion. Age is indeterminate. Correlation with history suggested and additional imaging may be helpful if clinically indicated. 2. Degenerative disc disease L1-L2, unchanged finding. 3. Examination is somewhat limited due to overlying bowel gas obscuring osseous detail. 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 Assessment and Plan - Diagnosis (1) Rhabdomyolysis Qualifiers: Rhabdomyolysis type: non-traumatic Qualified Code(s): M62.82 - Rhabdomyolysis Is this a current diagnosis for this admission?: Yes Plan: Secondary to seizure activity. CK 7207-> 49239-> 94256-> 12446-> 74059 Continue IV fluids. Encourage po fluids. Follow-up chemistry and CK. (2) Hypo-osmolality and hyponatremia Is this a current diagnosis for this admission?: Yes Plan: Resolved. Patient was initially admitted to the ICU and received 3% NS overnight. Na 118.4-> 131.0-> 128.5-> 130.5-> 137.6 Continuing IV fluids r/t rhabdomyolysis Likely secondary to chlorthalidone use; have discontinued. (3) Seizure Is this a current diagnosis for this admission?: Yes Plan: Head CT was negative for acute findings. 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 Secondary to hyponatremia. Seizure precautions in place. Fall precautions. (4) History of pituitary tumor Is this a current diagnosis for this admission?: Yes Plan: Records from [place] have been requested. 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 Follow up with established providers at [place] (5) Benzodiazepine dependence, continuous Is this a current diagnosis for this admission?: Yes Plan: Verified with the [place] controlled substance database; patient is prescribed alprazolam 1 mg # 120/month Continue 1/2 home dose Xanax scheduled four times daily. Monitor for evidence of withdrawal. (6) Opiate dependence, continuous Is this a current diagnosis for this admission?: Yes Plan: But with the [place] controlled substance database. Patient is prescribed Percocet 5/325 #150 monthly. Continue Percocet 5/325 every 6 hours as needed. (7) Hypokalemia Is this a current diagnosis for this admission?: Yes Plan: Overall improved following IV and oral replacement. Follow-up chemistry. (8) Anxiety and depression Is this a current diagnosis for this admission?: Yes Plan: Per patient, she is not prescribed Thorazine as a home medication. Nursing has verified with the pharmacy that this was listed as a home medication upon admission. Mental health consultation obtained; cleared from psychiatric perspective. No evidence of Munchhausen's or SI. No medication recommendations at this time. Appreciate their detailed evaluation. Unfortunately, the patient continues to provide incongruent behaviors and history with myself and the nurse that makes it difficult to interpret her true underlying mental health and physical needs. Will continue to monitor. - Time Time Spent with patient: 25-34 minutes Medications reviewed and adjusted accordingly: Yes Anticipated discharge: Home
[2019-06-25] MEDS: LISINOPRIL 10 MG TABLET PO SCH (12:04)
[2019-06-26] MEDS: NORMAL SALINE 1000 ML 1,000 ML IV PRN (05:19)
[2019-06-26] MEDS: OXYCODONE-ACETAMINOPHEN 5-325 MG TABLET PO PRN ×4 (05:19→18:55)
[2019-06-26 06:53] LABS: BLOOD UREA NITROGEN 3 mg/dL (7-20); CALCIUM 7.8 mg/dL (8.4-10.2); GLUCOSE 92 mg/dL (75-110)
[2019-06-26 06:59] LABS: CARBON DIOXIDE 30 mmol/L (22-30); CHLORIDE 104 mmol/L (98-107)
[2019-06-26 07:25] LABS: ANION GAP 4 (5-19)
[2019-06-26 07:26] LABS: CREATINE KINASE 7802 U/L (30-135)
[2019-06-26 07:28] LABS: POTASSIUM 2.9 mmol/L (3.6-5.0)
[2019-06-26] MEDS ORDERED: POTASSIUM CHLORIDE 10 MEQ TABLET.ER PO ONE (10:00)
[2019-06-26] MEDS ORDERED: LISINOPRIL 10 MG TABLET PO SCH (10:00)
[2019-06-26] MEDS: APIXABAN 5 MG TABLET PO SCH ×2 (10:03→17:40)
[2019-06-26] MEDS: ALPRAZOLAM 0.5 MG TABLET PO SCH ×3 (10:03→17:40)
[2019-06-26] MEDS: POTASSI CL 20 MEQ/50 ML RIDER 20 MEQ/50 ML RTUPB IV SCH ×2 (10:04→12:49)
[2019-06-26 15:53] LABS: BLOOD UREA NITROGEN 5 mg/dL (7-20); CALCIUM 7.8 mg/dL (8.4-10.2); GLUCOSE 99 mg/dL (75-110); POTASSIUM 3.7 mmol/L (3.6-5.0)
[2019-06-26 15:59] LABS: CARBON DIOXIDE 28 mmol/L (22-30); CHLORIDE 104 mmol/L (98-107)
[2019-06-26 16:14] VITALS: BP 152/85
[2019-06-26 16:31] LABS: ANION GAP 3 (5-19); CREATINE KINASE 6479 U/L (30-135)
--- NOTE | 2019-06-27 12:01 | PDOC DISCHARGE SUMMARY ---
Impression - Admit/DC Date/PCP Admission Date/Primary Care Provider: 06/21/19 18:20 EBONY GONZALEZ DO Discharge Date: 06/26/19 - Discharge Diagnosis (1) Rhabdomyolysis Is this a current diagnosis for this admission?: Yes (2) Hypo-osmolality and hyponatremia Is this a current diagnosis for this admission?: Yes (3) Seizure Is this a current diagnosis for this admission?: Yes (4) History of pituitary tumor Is this a current diagnosis for this admission?: Yes (5) Benzodiazepine dependence, continuous Is this a current diagnosis for this admission?: Yes (6) Opiate dependence, continuous Is this a current diagnosis for this admission?: Yes (7) Hypokalemia Is this a current diagnosis for this admission?: Yes (8) Anxiety and depression Is this a current diagnosis for this admission?: Yes - Additional Information Resuscitation Status: Full Code Discharge Diet: Regular Discharge Activity: Activity As Tolerated, Balance Activity w/Rest, Slowly Increase Activity Referrals: EBONY GONZALEZ DO [Primary Care Provider] - (Follow-up within 1 week.) Home Medications: Alprazolam [Xanax] 1 mg PO QID 06/21/19 Apixaban [Eliquis 5 mg Tablet] 5 mg PO BID 06/21/19 Lisinopril 20 mg PO DAILY 06/21/19 Oxycodone HCl/Acetaminophen [Percocet 5-325 mg Tablet] 1 tab PO Q4HP PRN 06/21/19 History of Present Illiness History of Present Illness: Per H&P: 59-year-old female history of anxiety, pituitary tumor, hypertension and dyslipidemia. She is on multiple medications for anxiety and chronic pain including Xanax and Thorazine. She presented to the emergency room following 2 episodes of seizures over the past 24 hours. Patient was found to be hyponatremic (Na: 118), and hypokalemic. She was started on hypertonic saline while in the emergency department and is slowly improving. On initial presentation, she was thought to be post-ictal ever her mental status has been steadily improving and upon arrival to the ICU she was awake and alert. She is being admitted to the intensive care unit for monitoring and correction of her hyponatremia and electrolyte imbalance. Hospital Course Hospital Course: (1) Rhabdomyolysis Significantly improved. Secondary to seizure activity. CK 7207-> 13313-> 98386-> 36457-> 31656-> 6479 Patient received generous IV fluids. Encourage po fluids. (2) Hypo-osmolality and hyponatremia Patient was initially admitted to the ICU and received 3% NS overnight. Na 118.4-> 131.0-> 128.5-> 130.5-> 137.6-> 135.4 Likely secondary to chlorthalidone use; have discontinued. Initially received 3% saline while in ICU. IVF were continued to be adjusted to correct for NA. (3) Seizure Head CT was negative for acute findings. 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 Secondary to hyponatremia. No indications for AEP. 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 Follow up with established providers at [facility] (5) Benzodiazepine dependence, continuous Verified with the [place] controlled substance database; patient is prescribed alprazolam 1 mg # 120/month Received 1/2 home dose Xanax scheduled four times daily. Strongly recommend PCP begin weaning benzodiazepines. (6) Opiate dependence, continuous Verified with the [place] controlled substance database. Patient is prescribed Percocet 5/325 #150 monthly. Received Percocet 5/325 every 6 hours as needed. Strongly recommend PCP begin weaning narcotic medications. (7) Hypokalemia Secondary to IVF. Replete. (8) Anxiety and depression Per patient, she is not prescribed Thorazine as a home medication. Mental health consultation obtained; cleared from psychiatric perspective. No evidence of Munchhausen's or SI. No medication recommendations at this time. Appreciate their detailed evaluation. Unfortunately, the patient continues to provide incongruent behaviors and history with myself and the nursing that makes it difficult to interpret her true underlying mental health and physical needs. Recommend close monitoring by PCP for evidence of medication seeking behaviors and/or underlying decompensated mental health disorder. Physical Exam Vital Signs: Temp Pulse Resp BP Pulse Ox 99.3 F 70 17 152/85 H 99 06/26/19 18:38 06/26/19 18:38 06/26/19 18:38 06/26/19 18:38 06/26/19 18:38 Intake & Output 06/26/19 06/27/19 06/28/19 06:59 06:59 06:59 Intake Total 4720 1670 Output Total 3500 2200 Balance 1220 -530 Weight 72.3 kg 72.3 kg General appearance: PRESENT: no acute distress, well-developed, well-nourished Head exam: PRESENT: atraumatic, normocephalic Eye exam: PRESENT: conjunctiva pink, EOMI, PERRLA. ABSENT: scleral icterus Mouth exam: PRESENT: moist, tongue midline Teeth exam: PRESENT: poor dentation Neck exam: ABSENT: carotid bruit, JVD, lymphadenopathy, thyromegaly Respiratory exam: PRESENT: clear to auscultation dimitri, symmetrical, unlabored. ABSENT: rales, rhonchi, wheezes Cardiovascular exam: PRESENT: RRR. ABSENT: diastolic murmur, rubs, systolic murmur Pulses: PRESENT: normal dorsalis pedis pul Vascular exam: PRESENT: normal capillary refill Extremities exam: PRESENT: full ROM. ABSENT: calf tenderness, clubbing, pedal edema Musculoskeletal exam: PRESENT: ambulatory Neurological exam: PRESENT: alert, awake, oriented to person, oriented to place, oriented to time, oriented to situation, CN II-XII grossly intact. ABSENT: motor sensory deficit Psychiatric exam: PRESENT: normal mood, unusual affect. ABSENT: homicidal ideation, suicidal ideation Skin exam: PRESENT: dry, intact, warm. ABSENT: cyanosis, rash Results Laboratory Results: WBC 8.7 10^3/uL (4.0-10.5) 06/24/19 04:44 RBC 3.34 10^6/uL (3.72-5.28) L 06/24/19 04:44 Hgb 10.4 g/dL (12.0-15.5) L 06/24/19 04:44 Hct 29.2 % (36.0-47.0) L 06/24/19 04:44 MCV 88 fl (80-97) 06/24/19 04:44 MCH 31.1 pg (27.0-33.4) 06/24/19 04:44 MCHC 35.6 g/dL (32.0-36.0) 06/24/19 04:44 RDW 13.1 % (11.5-14.0) 06/24/19 04:44 Plt Count 285 10^3/uL (150-450) 06/24/19 04:44 Lymph % (Auto) 17.7 % (13-45) 06/24/19 04:44 [place] % (Auto) 8.2 % (3-13) 06/24/19 04:44 Eos % (Auto) 1.7 % (0-6) 06/24/19 04:44 Baso % (Auto) 1.1 % (0-2) 06/24/19 04:44 Absolute Neuts (auto) 6.2 10^3/uL (1.7-8.2) 06/24/19 04:44 Absolute Lymphs (auto) 1.5 10^3/uL (0.5-4.7) 06/24/19 04:44 Absolute Monos (auto) 0.7 10^3/uL (0.1-1.4) 06/24/19 04:44 Absolute Eos (auto) 0.1 10^3/uL (0.0-0.6) 06/24/19 04:44 Absolute Basos (auto) 0.1 10^3/uL (0.0-0.2) 06/24/19 04:44 Seg Neutrophils % 71.3 % (42-78) 06/24/19 04:44 PT 16.2 SEC (11.4-15.4) H 06/21/19 18:57 INR 1.29 06/21/19 18:57 APTT 31.2 SEC (23.5-35.8) 06/21/19 18:57 VBG pH 7.48 (7.30-7.42) H 06/21/19 18:57 VBG pCO2 34.8 mmHg (35-63) L 06/21/19 18:57 VBG HCO3 25.0 mmol/L (20-32) 06/21/19 18:57 VBG Base Excess 1.9 mmol/L 06/21/19 18:57 Sodium 135.4 mmol/L (137-145) L 06/26/19 15:17 Potassium 3.7 mmol/L (3.6-5.0) 06/26/19 15:17 Chloride 104 mmol/L (98-107) 06/26/19 15:17 Carbon Dioxide 28 mmol/L (22-30) 06/26/19 15:17 Anion Gap 3 (5-19) L 06/26/19 15:17 BUN 5 mg/dL (7-20) L 06/26/19 15:17 Creatinine 0.56 mg/dL (0.52-1.25) 06/26/19 15:17 Est GFR ( Amer) > 60 (>60) 06/26/19 15:17 Est GFR (MDRD) Non-Af > 60 (>60) 06/26/19 15:17 Glucose 99 mg/dL (75-110) 06/26/19 15:17 POC Glucose 110 mg/dL (70-110) 06/22/19 18:25 Hemoglobin A1c % 5.5 % (4.7-6.0) 06/21/19 15:35 Serum Osmolality 241 mOsm/kg (275-301) L 06/21/19 18:57 Lactic Acid 1.0 mmol/L (0.7-2.1) 06/21/19 21:07 Calcium 7.8 mg/dL (8.4-10.2) L 06/26/19 15:17 Phosphorus 2.0 mg/dL (2.5-4.5) L 06/24/19 04:44 Magnesium 1.9 mg/dL (1.6-2.3) 06/24/19 04:44 Total Bilirubin 0.7 mg/dL (0.2-1.3) 06/22/19 06:05 Direct Bilirubin 0.2 mg/dL (0.0-0.4) 06/22/19 06:05 Neonat Total Bilirubin Not Reportable 06/22/19 06:05 Neonat Direct Bilirubin Not Reportable 06/22/19 06:05 Neonat Indirect Bili Not Reportable 06/22/19 06:05 AST 77 U/L (14-36) H 06/22/19 06:05 ALT 17 U/L (<35) 06/22/19 06:05 Alkaline Phosphatase 61 U/L (38-126) 06/22/19 06:05 Ammonia < 8.7 umol/L (9-33) L 06/21/19 18:57 Creatine Kinase 6479 U/L (30-135) H 06/26/19 15:17 Troponin I 0.013 ng/mL 06/21/19 15:35 Total Protein 7.0 g/dL (6.3-8.2) 06/22/19 06:05 Albumin 4.1 g/dL (3.5-5.0) 06/22/19 06:05 TSH 0.31 uIU/mL (0.47-4.68) L 06/21/19 18:57 Random Cortisol 30.90 ug/dL (None Established) 06/21/19 18:57 Urine Color STRAW 06/21/19 20:11 Urine Appearance CLEAR 06/21/19 20:11 Urine pH 6.0 (5.0-9.0) 06/21/19 20:11 Ur Specific [place] 1.006 06/21/19 20:11 Urine Protein NEGATIVE mg/dL (NEGATIVE) 06/21/19 20:11 Urine Glucose (UA) NEGATIVE mg/dL (NEGATIVE) 06/21/19 20:11 Urine Ketones NEGATIVE mg/dL (NEGATIVE) 06/21/19 20:11 Urine Blood MODERATE (NEGATIVE) H 06/21/19 20:11 Urine Nitrite (Reflex) NEGATIVE (NEGATIVE) 06/21/19 20:11 Urine Bilirubin NEGATIVE (NEGATIVE) 06/21/19 20:11 Urine Urobilinogen NEGATIVE mg/dL (<2.0) 06/21/19 20:11 Leukocyte Esterase Rfl NEGATIVE (NEGATIVE) 06/21/19 20:11 Urine RBC (Auto) 0 /HPF 06/21/19 20:11 Urine WBC (Reflex) 1 /HPF 06/21/19 20:11 Urine Mucus (Auto) OCC /LPF 06/21/19 20:11 Urine Osmolality 229 mOsm/kg (300-900) L 06/21/19 20:11 Urine Creatinine 46.9 mg/dL (15-278) 06/21/19 20:11 Urine Sodium 28 mmol/L (30-90) L 06/21/19 20:11 Urine Potassium 23.8 mmol/L (22-164) 06/21/19 20:11 Urine Ascorbic Acid NEGATIVE (NEGATIVE) 06/21/19 20:11 Urine Opiates Screen NEGATIVE 06/21/19 20:11 Urine Methadone Screen NEGATIVE 06/21/19 20:11 Ur Barbiturates Screen NEGATIVE 06/21/19 20:11 Ur Phencyclidine Scrn NEGATIVE 06/21/19 20:11 Ur Amphetamines Screen NEGATIVE 06/21/19 20:11 U Benzodiazepines Scrn UNCONFIRMED POSITIVE 06/21/19 20:11 Urine Cocaine Screen NEGATIVE 06/21/19 20:11 U Marijuana (THC) Screen NEGATIVE 06/21/19 20:11 06/21/19 15:35 Troponin I 0.013 Impressions: Chest X-Ray 06/21/19 15:30 IMPRESSION: NO ACUTE RADIOGRAPHIC FINDING IN THE CHEST. Head CT 06/21/19 16:23 IMPRESSION: 1. No acute intracranial abnormality. 2. Additional findings as above. EVIDENCE OF ACUTE STROKE: NO Lumbar Spine X-Ray 06/21/19 16:25 IMPRESSION: 1. Mild compression deformity of the superior endplate of the L1 vertebra since the previous study dated 02/23/2017. No evidence of retropulsion. Age is indeterminate. Correlation with history suggested and additional imaging may be helpful if clinically indicated. 2. Degenerative disc disease L1-L2, unchanged finding. 3. Examination is somewhat limited due to overlying bowel gas obscuring osseous detail. 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 Plan Plan of Treatment: Patient is discharged home in stable condition. Follow-up with primary care provider within 1 week. Take medication as prescribed. STOP the chlorthalidone. Eat a heart healthy diet. Do NOT smoke. Return to emergency department as needed for concerning symptoms. Time Spent: Greater than 30 Minutes Stroke Is this a Stroke Patient?: No Acute Heart Failure - Is this a Heart Failure Patient?: No
== END 2019-06-26 19:20 | disposition home or self-care (01) | DRG 641 ==
LOC: ER 15:27 → EH 18:20 → ICU 20:39 → 4N 06-22 13:40
PROVIDERS: ADMIT Internal Medicine Critical Care Medicine; ATTEND Registered Nurse
DX: E87.1 Hypo-osmolality and hyponatremia (principal); M62.82 Rhabdomyolysis; F13.20 Sedative, hypnotic or anxiolytic dependence, uncomplicated; F11.20 Opioid dependence, uncomplicated; E87.6 Hypokalemia; I10 Essential (primary) hypertension; E78.5 Hyperlipidemia, unspecified; R56.9 Unspecified convulsions; G89.29 Other chronic pain; F41.1 Generalized anxiety disorder; D35.2 Benign neoplasm of pituitary gland; F32.9 Major depressive disorder, single episode, unspecified; Z79.01 Long term (current) use of anticoagulants; Z79.899 Other long term (current) drug therapy; Z88.1 Allergy status to other antibiotic agents; Z88.6 Allergy status to analgesic agent; Z88.8 Allergy status to other drugs, medicaments and biological substances; Z88.0 Allergy status to penicillin; Z88.2 Allergy status to sulfonamides
CPT/HCPCS: 36415; 70450; 70553; 71045; 72110; 80048; 80053; 80307; 81001; 82140; 82533; 82550; 82570; 82803; 82962; 83036; 83605; 83735; 83930; 83935; 84100; 84132; 84133; 84300; 84443; 84484; 85025; 85610; 85730; 87040; 93005; 93010; 99291; A9576; J1650; J3480; J3490; J7030; J7060